=== PATIENT | female | born 1960 | race American Indian/Alaskan Native ===

== ENCOUNTER 2017-02-13 08:47 | Day surgery (SDC) | payer OTHER ==
[2017-02-10 13:16] VITALS: BMI 36.3
[2017-02-13] MEDS ORDERED: Propofol 10 mg/ml Inj (20 ML) ONE (09:39)
[2017-02-13] MEDS ORDERED: Lactated Ringer's 1,000 ML IV SCH (10:45)
[2017-02-13 11:11] VITALS: BP 123/77; RESP 18; TEMP 97.5; O2SAT 100
[2017-02-13 11:29] VITALS: PULSE 67
== END 2017-02-13 11:35 | disposition home or self-care (01) ==
LOC: ENDO 08:47
PROVIDERS: ATTEND Internal Medicine
DX: K21.9 Gastro-esophageal reflux disease without esophagitis (principal); K31.7 Polyp of stomach and duodenum; D12.2 Benign neoplasm of ascending colon; K64.8 Other hemorrhoids; K29.50 Unspecified chronic gastritis without bleeding; R11.0 Nausea; K59.00 Constipation, unspecified; R14.0 Abdominal distension (gaseous); Z12.11 Encounter for screening for malignant neoplasm of colon; Z90.49 Acquired absence of other specified parts of digestive tract
CPT/HCPCS: 43239; 45380; 88305; 88342; J2001; J2704; J3010; J7040; J7120

== ENCOUNTER 2017-12-06 16:40 | Emergency (ER) | payer BC, OTHER ==
[2017-12-06 17:05] VITALS: BMI 30.5
[2017-12-06 17:07] VITALS: BP 142/82; TEMP 98
[2017-12-06 18:24] LABS: BASO # 0.03 K/mm3 (0.0-2.0); BASO % 0.4 % (0.0-3.0); EOS # 0.2 (0.0-0.7); EOS % 2.6 % (1.5-5.0); GRAN # 4.76 (1.4-6.5); GRAN % 58.5 % (50.0-68.0); HEMOGLOBIN 12.7 g/dL (12.0-16.0); LYMPH # 2.6 (1.2-3.4); LYMPH % 32.5 % (22.0-35.0); MEAN CELL VOLUME 85.4 fl (80.0-105.0); MEAN CORPUSCULAR HGB CONC 31.6 g/dl (31.0-37.0); MEAN PLATELET VOLUME 10.3 fl (7.0-11.0); MONO # 0.5 (0.1-0.6); RBC 4.71 10^6/uL (3.5-6.1); WHITE BLOOD COUNT 8.1 10^3/ul (4.5-11.0)
[2017-12-06 18:26] LABS: ALB/GLOB RATIO 1.2 (1.1-1.8); ALBUMIN 4.2 g/dL (3.0-4.8); ALT/SGPT 29 U/L (7-56); AST/SGOT 28 U/L (14-36); BLOOD UREA NITROGEN 17 mg/dL (7-21); CALCIUM 10.6 mg/dL (8.4-10.5); GFR AFRICAN-AMERICAN > 60; GFR NON-AFRICAN AMERICAN 52; MAGNESIUM 2.4 mg/dL (1.7-2.2)
[2017-12-06 18:35] LABS: B-TYPE NATRIURETIC PEPTIDE 41.2 pg/mL (0-450); TROPONIN I < 0.01 ng/mL
[2017-12-06 18:38] LABS: URINE BILIRUBIN NEGATIVE (NEGATIVE); URINE BLOOD NEGATIVE (NEGATIVE); URINE GLUCOSE (UA) NEGATIVE (NEGATIVE); URINE LEUKOCYTE ESTERASE NEGATIVE Leu/uL (NEGATIVE); URINE NITRATE NEGATIVE (NEGATIVE); URINE PROTEIN NEGATIVE mg/dL (<30 mg/dL); URINE UROBILINOGEN 0.2 E.U./dL (<1 E.U./dL)
[2017-12-06 18:40] LABS: URINE APPEARANCE CLEAR (CLEAR); URINE COLOR YELLOW (YELLOW)
[2017-12-06 18:41] LABS: INR 1.03 (0.93-1.08); PARTIAL THROMBOPLASTIN TIME 37.1 Seconds (25.1-36.5); PROTHROMBIN TIME 11.8 SECONDS (9.4-12.5)
[2017-12-06] MEDS ORDERED: Alum-Mag Hydrox-Simethicone Susp (30 mL) PO STA (19:16)
--- NOTE | 2017-12-06 19:37 | ED PDOC ---
Arrival/HPI - General Chief Complaint: Chest Pain Time Seen by Provider: 12/06/17 17:35 Historian: Patient - History of Present Illness Narrative History of Present Illness (Text): 57 y/o woman w/ pmhx of HTN, HLD , past neagtive cardiac stress tests/ echocardiogram reportedly presents sent in from Dr. Parsons's office for evaluaiton of 6 weeks of typically postpradially exacerbated chest paiin , never exertionally exacerbated nor associated with fatigue/malaise/shortness of breath/ decrementation of ET diaphoresis. Denies recent melena/URI like symptoms. Chest pain is nonradiatiing. Chest pain is repdocubible w/ palpation. 12/06/17 19:33 12/06/17 19:38 Symptom Onset: Gradual Symptom Course: Unchanged Quality: Aching Past Medical History - Provider Review Nursing Documentation Reviewed: Yes - Travel History Have you recently traveled outside [place] w/in the past 3 mons?: No - Infectious Disease Hx of Infectious Diseases: None - Tetanus Immunization Tetanus Immunization: Unknown - Cardiac Hx Pacemaker: No - Pulmonary Hx Respiratory Disorders: No - Neurological Hx Paralysis: No - HEENT Hx HEENT Disorder: No - Renal Hx Renal Disorder: No - Endocrine/Metabolic Hx Hypothyroidism: Yes - Hematological/Oncological Hx Blood Transfusions: No Hx Blood Transfusion Reaction: No - Integumentary Hx Dermatological Disorder: No - Musculoskeletal/Rheumatological Hx Musculoskeletal Disorders: No - Gastrointestinal Hx Gastroesophageal Reflux: Yes - Genitourinary/Gynecological Hx Genitourinary Disorders: No - Psychiatric Hx Emotional Abuse: No Hx Physical Abuse: No Hx Substance Use: No - Surgical History Hx Cholecystectomy: Yes (March 2016) Hx Hysterectomy: Yes (Partial hysterectomy) - Anesthesia Hx Anesthesia Reactions: No Hx Malignant Hyperthermia: No - Suicidal Assessment Feels Threatened In Home Enviroment: No Family/Social History - Physician Review Nursing Documentation Reviewed: Yes Family/Social History: No Known Family HX Smoking Status: Never Smoked Hx Alcohol Use: No Hx Substance Use: No Hx Substance Use Treatment: No Allergies/Home Meds Allergies/Adverse Reactions: Allergies No Known Allergies Allergy (Verified 12/06/17 17:05) Home Medications: Home Meds Medication Instructions Recorded Confirmed Simvastatin 20 mg PO DAILY 05/10/15 02/13/17 amLODIPine [Norvasc] 5 mg PO DAILY 05/10/15 02/13/17 Hyoscyamine Sulfate [Levsin] 0.125 mg PO ACTID 02/10/17 02/13/17 Lisinopril [Zestril] 10 mg PO DAILY 02/10/17 02/13/17 Meclizine HCl [Motion Sickness 25 mg PO PRN PRN 02/10/17 02/13/17 Relief] Ondansetron ODT [Zofran ODT] 4 mg PO Q8H PRN 02/10/17 02/10/17 hydroCHLOROthiazide [Hydrodiuril] 25 mg PO DAILY 02/10/17 02/13/17 Esomeprazole Magnesium [Nexium] 20 mg PO DAILY 02/13/17 02/13/17 Review of Systems - Physician Review All systems were reviewed & negative as marked: Yes - Review of Systems Constitutional: Normal Eyes: Normal ENT: Normal Respiratory: Normal Cardiovascular: Chest Pain Gastrointestinal: Normal Genitourinary Female: Normal Musculoskeletal: Normal Skin: Normal Neurological: Normal Endocrine: Normal Hemo/Lymphatic: Normal Psychiatric: Normal Physical Exam Vital Signs Temp Pulse Pulse Resp BP BP Pulse Ox 12/06/17 17:07 98.0 F 65 65 21 142/82 142/82 96 12/06/17 17:05 98.0 F 65 21 142/82 99 Temperature: Afebrile Blood Pressure: Normal Pulse: Regular Respiratory Rate: Normal Appearance: Positive for: Well-Appearing, Non-Toxic, Comfortable Pain Distress: None Mental Status: Positive for: Alert and Oriented X 3 - Systems Exam Head: Present: Atraumatic, Normocephalic Pupils: Present: PERRL Extroacular Muscles: Present: EOMI Conjunctiva: Present: Normal Mouth: Present: Moist Mucous Membranes Neck: Present: Normal Range of Motion Respiratory/Chest: Present: Clear to Auscultation, Good Air Exchange. No: Respiratory Distress, Accessory Muscle Use Cardiovascular: Present: Regular Rate and Rhythm, Normal S1, S2. No: Murmurs Abdomen: Present: Normal Bowel Sounds. No: Tenderness, Distention, Peritoneal Signs Back: Present: Normal Inspection Upper Extremity: Present: Normal Inspection. No: Cyanosis, Edema Lower Extremity: Present: Normal Inspection. No: Edema Neurological: Present: GCS=15, CN II-XII Intact, Speech Normal, Motor Func Grossly Intact, Normal Sensory Function, Normal Cerebellar Funct, Norm Deep Tendon Reflexes Skin: Present: Warm, Dry, Normal Color. No: Rashes Psychiatric: Present: Alert, Oriented x 3, Normal Insight, Normal Concentration Medical Decision Making ED Course and Treatment: 57 y/o female w/ pmhx of htn, hld,GERD p/w postprandially exacerbated CP. ekg : nsr w/ no ischemic [id number] nor arrythmognic intervals 1st set ce's (-) for tropinemia/ cxr (-) for airspace disease. 12/06/17 19:39 12/06/17 19:53 10/26/16 Myocardial Stress Perfusion Test: normal gated wall study/ normal lvef/ normal lv contractility CP currently abated. - Lab Interpretations Lab Results: 12/06/17 17:50 12/06/17 17:50 Lab Results 12/06/17 18:15: Urine Color Yellow, Urine Appearance Clear, Urine pH 7.0, Ur Specific [place] 1.010, Urine Protein Negative, Urine Glucose (UA) Negative, Urine Ketones Negative, Urine Blood Negative, Urine Nitrate Negative, Urine Bilirubin Negative, Urine Urobilinogen 0.2, Ur Leukocyte Esterase Negative 12/06/17 17:50: Sodium 139, Potassium 4.5, Chloride 100, Carbon Dioxide 29, Anion Gap 14, BUN 17, Creatinine 1.1, Est GFR ( Amer) > 60, Est GFR (Non- Af Amer) 52, Random Glucose 99, Calcium 10.6 H, Magnesium 2.4 H, Total Bilirubin 0.3, AST 28, ALT 29, Alkaline Phosphatase 79, Lactate Dehydrogenase 422, Total Creatine Kinase 148, Troponin I < 0.01, NT-Pro-B Natriuret Pep 41.2, Total Protein 7.7, Albumin 4.2, Globulin 3.6, Albumin/Globulin Ratio 1.2 12/06/17 17:50: PT 11.8, INR 1.03, APTT 37.1 H 12/06/17 17:50: WBC 8.1 D, RBC 4.71, Hgb 12.7, Hct 40.2, MCV 85.4, MCH 27.0, MCHC 31.6, RDW 16.0 H, Plt Count 267, MPV 10.3, Gran % 58.5, Lymph % (Auto) 32.5 , [place] % (Auto) 6.0, Eos % (Auto) 2.6, Baso % (Auto) 0.4, Gran # 4.76, Lymph # ( Auto) 2.6, [place] # (Auto) 0.5, Eos # (Auto) 0.2, Baso # (Auto) 0.03 - RAD Interpretation Radiology Orders: 12/06/17 17:36 CHEST PORTABLE [RAD] Stat - Medication Orders Current Medication Orders: Discontinued Medications Al Hydrox/Mg Hydrox/Simethicone (Maalox Plus 30 Ml) 30 ml PO STAT STA Stop: 12/06/17 19:17 Famotidine (Pepcid) 20 mg IVP STAT STA Stop: 12/06/17 19:16 Disposition/Present on Arrival - Present on Arrival Any Indicators Present on Arrival: No History of DVT/PE: No History of Uncontrolled Diabetes: No Urinary Catheter: No History of Decub. Ulcer: No History Surgical Site Infection Following: None - Disposition Have Diagnosis and Disposition been Completed?: Yes Diagnosis: GERD (gastroesophageal reflux disease), Chest pain Disposition: HOME/ ROUTINE Disposition Time: 19:54 Patient Plan: Discharge Condition: FAIR Discharge Instructions (ExitCare): Chest Pain (ED) Print Language: ROMANSH Additional Instructions: Your workup here was negative for any evidence of acute coronary syndromes blood clot in lung/ nor any other chest pain emergencies You must follow up with the die tripper for a comprehensive cardiac evaluation in the next few days. By calling hs office withj report of your ER evaluation. You must also watch your diet carefully avoiding large meals/ greasy meals/meat / coffee/chocalate/all alcoholic beverages , and also all late night eating prior to reclining to bed. Spicy foods can also exacerbate your reflux. Prescriptions: Famotidine [Pepcid] 20 mg PO BID PRN #40 tab PRN Reason: Dyspepsia Referrals: Marietta Parsons MD [Primary Care Provider] - Follow up with primary Gerard Flores MD [Staff Provider] - Follow up with primary Forms: [employer] (Lithuanian)
[2017-12-06 21:23] VITALS: PULSE 69; RESP 19
[2017-12-06 21:24] VITALS: O2SAT 98
--- NOTE | 2017-12-07 08:35 | RAD ---
HISTORY: nathan fenton COMPARISON: 09/21/2016 FINDINGS: LUNGS: No active pulmonary disease. PLEURA: No significant pleural effusion identified, no pneumothorax apparent. CARDIOVASCULAR: Normal. OSSEOUS STRUCTURES: No significant abnormalities. VISUALIZED UPPER ABDOMEN: Normal. OTHER FINDINGS: None. IMPRESSION: No active disease.
--- NOTE | 2017-12-07 16:18 | CARD ---
APPROVED REPORT EKG Measurement Heart [id number] <Conclusion> Normal sinus rhythm Normal ECG
== END 2017-12-06 21:00 | disposition home or self-care (01) ==
LOC: ED 16:40
DX: R07.9 Chest pain, unspecified (principal); K21.9 Gastro-esophageal reflux disease without esophagitis; I10 Essential (primary) hypertension; E78.5 Hyperlipidemia, unspecified

== ENCOUNTER 2018-02-06 06:05 | Day surgery (SDC) | payer OTHER ==
[2018-02-06 07:17] VITALS: BMI 40.1
[2018-02-06] MEDS ORDERED: Propofol 10 mg/ml Inj (20 ML) ONE ×2 (07:52→08:29)
[2018-02-06] MEDS ORDERED: Phenylephrine 10 mg/ml Inj ONE (07:54)
[2018-02-06] MEDS ORDERED: Sodium Chloride 0.9% 1,000 ML IV SCH (08:45)
[2018-02-06 09:23] VITALS: BP 129/85; PULSE 56; RESP 14; TEMP 98.4; O2SAT 100
== END 2018-02-06 09:41 | disposition home or self-care (01) ==
LOC: ENDO 06:05
PROVIDERS: ATTEND Internal Medicine
DX: Z12.11 Encounter for screening for malignant neoplasm of colon (principal); K55.20 Angiodysplasia of colon without hemorrhage; K64.8 Other hemorrhoids; Z86.010 Personal history of colon polyps; I10 Essential (primary) hypertension; E78.5 Hyperlipidemia, unspecified
CPT/HCPCS: 45378; J2370; J2704; J7040 ×2

== ENCOUNTER 2018-02-18 17:11 | Emergency (ER) | payer OTHER ==
[2018-02-18 17:12] VITALS: BMI 40.1
[2018-02-18 17:22] VITALS: RESP 16; TEMP 98.7; O2SAT 98
[2018-02-18] MEDS ORDERED: Lactated Ringer's 1,000 ML IV SCH (17:30)
[2018-02-18 18:08] LABS: PH,URINE 6.5 (4.7-8.0); URINE BILIRUBIN NEGATIVE (NEGATIVE); URINE BLOOD TRACE-INTACT (NEGATIVE); URINE GLUCOSE (UA) NEGATIVE (NEGATIVE); URINE LEUKOCYTE ESTERASE NEGATIVE Leu/uL (NEGATIVE); URINE PROTEIN NEGATIVE mg/dL (<30 mg/dL); URINE UROBILINOGEN 0.2 E.U./dL (<1 E.U./dL)
[2018-02-18 18:11] LABS: URINE APPEARANCE CLEAR (CLEAR); URINE COLOR YELLOW (YELLOW)
[2018-02-18 18:20] LABS: URINE BACTERIA MOD (NEG)
[2018-02-18 18:22] LABS: BASO # 0.04 K/mm3 (0.0-2.0); BASO % 0.5 % (0.0-3.0); EOS # 0.2 (0.0-0.7); GRAN # 4.6 (1.4-6.5); GRAN % 61.9 % (50.0-68.0); HEMOGLOBIN 12.7 g/dL (12.0-16.0); LYMPH % 27.2 % (22.0-35.0); MEAN CELL VOLUME 82.2 fl (80.0-105.0); MEAN CORPUSCULAR HEMOGLOBIN 26.8 pg (25.0-35.0); MEAN CORPUSCULAR HGB CONC 32.6 g/dl (31.0-37.0); MONO # 0.6 (0.1-0.6); MONO % 7.4 % (1.0-6.0); RBC 4.73 10^6/uL (3.5-6.1); RED CELL DISTRIBUTION WIDTH 15.7 % (11.5-14.5); WHITE BLOOD COUNT 7.4 10^3/ul (4.5-11.0)
--- NOTE | 2018-02-18 18:26 | ED PDOC ---
Arrival/HPI - General Chief Complaint: Weakness/Neurological Deficit Time Seen by Provider: 02/18/18 17:21 Historian: Patient - History of Present Illness Narrative History of Present Illness (Text): 02/18/18 18:20 57 year old female, whose past medical history includes iron deficiency anemia ( non-compliant), vertigo, hypertension, and hyperlipidemia, who presents to the emergency department complaining of headache and dizziness for 3 days. Patient notes associated shortness of breath and dyspnea upon exertion. 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 Patient notes she had to sit down and rest. Patient saw Dr. Teixeira on Monday, who discontinued Antihypertensives at that time. Patient had blood test done yesterday, which results showed negative for anemia, negative for renal failure , and negative for electrolyte abnormalities. Recent stress test was received on 01/22/18, with negative results. Patient's recent colonoscopy shows positive for ectatic veins. Patient denies any fever, chills, chest pain, blurry vision, nausea, vomiting, diarrhea, back pain, neck pain, or any other complaints. 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 Past Medical History - Provider Review Nursing Documentation Reviewed: Yes - Infectious Disease Hx of Infectious Diseases: None - Tetanus Immunization Tetanus Immunization: Unknown - Cardiac Hx Cardiac Disorders: Yes Hx Hypertension: Yes - Pulmonary Hx Respiratory Disorders: No - Neurological Hx Neurological Disorder: Yes Hx Vertigo: Yes - HEENT Hx HEENT Disorder: No - Renal Hx Renal Disorder: No - Endocrine/Metabolic Hx Endocrine Disorders: Yes Hx Hypothyroidism: Yes - Hematological/Oncological Hx Blood Disorders: Yes Hx Anemia: Yes - Integumentary Hx Dermatological Disorder: No - Musculoskeletal/Rheumatological Hx Musculoskeletal Disorders: No - Gastrointestinal Hx Gastrointestinal Disorders: Yes Hx Gastroesophageal Reflux: Yes - Genitourinary/Gynecological Hx Genitourinary Disorders: No - Psychiatric Hx Emotional Abuse: No Hx Physical Abuse: No Hx Substance Use: No - Surgical History Hx Cholecystectomy: Yes - Anesthesia Hx Anesthesia Reactions: No Hx Malignant Hyperthermia: No - Suicidal Assessment Feels Threatened In Home Enviroment: No Family/Social History - Physician Review Nursing Documentation Reviewed: Yes Family/Social History: Unknown Family HX Smoking Status: Never Smoked Hx Alcohol Use: No Hx Substance Use: No Hx Substance Use Treatment: No Allergies/Home Meds Allergies/Adverse Reactions: Allergies No Known Allergies Allergy (Verified 02/18/18 17:14) Home Medications: Home Meds Medication Instructions Recorded Confirmed Ondansetron ODT [Zofran ODT] 4 mg PO Q8H PRN 02/10/17 02/18/18 Polyethylene Glycol 3350 1 packet PO DAILY 01/31/18 02/18/18 [Laxaclear] Pantoprazole [Protonix EC Tab] 40 mg PO DAILY 02/18/18 02/18/18 Review of Systems - Physician Review All systems were reviewed & negative as marked: Yes - Review of Systems Constitutional: Normal Eyes: Normal ENT: Tinnitus (Left tinnitus, prescribed ear drops) Respiratory: absent: SOB Cardiovascular: Normal. absent: Chest Pain Gastrointestinal: Normal. absent: Abdominal Pain Genitourinary Female: Normal. absent: Dysuria, Frequency, Hematuria, Urine Output Changes Musculoskeletal: Normal. absent: Back Pain, Neck Pain Skin: Normal. absent: Rash Neurological: Headache, Dizziness Endocrine: Normal Hemo/Lymphatic: Normal Psychiatric: Normal Physical Exam Vital Signs Reviewed: Yes Vital Signs Temp Pulse Resp BP Pulse Ox 02/18/18 17:16 98.7 F 71 16 156/97 H 98 Temperature: Afebrile Blood Pressure: Hypertensive Pulse: Regular Respiratory Rate: Normal Appearance: Positive for: Well-Appearing, Non-Toxic, Comfortable Pain Distress: None Mental Status: Positive for: Alert and Oriented X 3 - Systems Exam Head: Present: Atraumatic, Normocephalic Pupils: Present: PERRL Extroacular Muscles: Present: EOMI Conjunctiva: Present: Normal Mouth: Present: Moist Mucous Membranes Neck: Present: Normal Range of Motion. No: MIDLINE TENDERNESS Respiratory/Chest: Present: Clear to Auscultation, Good Air Exchange. No: Respiratory Distress, Accessory Muscle Use, Decreased Breath Sounds Cardiovascular: Present: Regular Rate and Rhythm, Normal S1, S2. No: Murmurs Abdomen: No: Tenderness, Distention, Peritoneal Signs Back: Present: Normal Inspection. No: CVA Tenderness, Midline Tenderness, Paraspinal Tenderness Upper Extremity: Present: Normal Inspection. No: Cyanosis, Edema Lower Extremity: Present: Normal Inspection. No: Edema, CALF TENDERNESS Neurological: Present: GCS=15, CN II-XII Intact, Speech Normal, Other (Knvg- Hallpike positive for fatigueness and nystagmus to the left) Skin: Present: Warm, Dry, Normal Color. No: Rashes Psychiatric: Present: Alert, Oriented x 3, Normal Insight, Normal Concentration Medical Decision Making ED Course and Treatment: 02/18/18 18:30 Impression: 57 year old female presents to the emergency department complaining of headache and dizziness for 3 days. Plan: -- VBG -- CT head -- EKG: SB @ 54 bpm no arrythmogenic intervals / ischemic st-t intervals -- Labs -- Cardiac Enzymes -- Chest X-ray -- Acetaminophen -- Lactate Ringer's -- Antivert -- Reassess and disposition Progress Notes: Pt. signed out to my replacement Dr. Lebron to reassess patient s/p ivf/ meclizine/antivert/ head ct non contrast. 02/18/18 18:47 - Lab Interpretations Lab Results: 02/18/18 18:10 02/18/18 18:10 Lab Results 02/18/18 18:10: Sodium 141, Chloride 105, Potassium 4.0, Carbon Dioxide 26, Anion Gap 14, BUN 14, Creatinine 1.1, Est GFR ( Amer) > 60, Est GFR (Non- Af Amer) 52, Random Glucose 94, Calcium 9.9, Total Bilirubin 0.1 L, AST 25, ALT 29, Alkaline Phosphatase 83, Lactate Dehydrogenase 376, Total Creatine Kinase 92 , Troponin I < 0.01, Total Protein 7.5, Albumin 4.0, Globulin 3.5, Albumin/ Globulin Ratio 1.2 02/18/18 18:10: pO2 93 H, VBG pH 7.43, VBG pCO2 44.0, VBG HCO3 29.2 H, VBG Total CO2 30.6 H, VBG O2 Sat (Calc) 99.1 H, VBG Base Excess 4.2 H, VBG Potassium 4.0, Sodium 141.0, Chloride 107.0, Glucose 93, Lactate 1.1, FiO2 21.0 , Venous Blood Potassium 4.0 02/18/18 18:10: PT 12.4, INR 1.09 H, APTT 38.4 H 02/18/18 18:10: WBC 7.4 D, RBC 4.73, Hgb 12.7, Hct 38.9, MCV 82.2, MCH 26.8, MCHC 32.6, RDW 15.7 H, Plt Count 244, MPV 10.0, Gran % 61.9, Lymph % (Auto) 27.2 , [place] % (Auto) 7.4 H, Eos % (Auto) 3.0, Baso % (Auto) 0.5, Gran # 4.60, Lymph # (Auto) 2.0, [place] # (Auto) 0.6, Eos # (Auto) 0.2, Baso # (Auto) 0.04 02/18/18 17:30: Urine Color Yellow, Urine Appearance Clear, Urine pH 6.5, Ur Specific [place] <= 1.005, Urine Protein Negative, Urine Glucose (UA) Negative, Urine Ketones Negative, Urine Blood Trace-intact H, Urine Nitrate Negative, Urine Bilirubin Negative, Urine Urobilinogen 0.2, Ur Leukocyte Esterase Negative , Urine RBC 1 - 3, Urine WBC 2 - 5, Ur Epithelial Cells 3 - 4, Urine Bacteria Mod - RAD Interpretation Radiology Orders: 02/18/18 17:26 CHEST TWO VIEWS (PA/LAT) [RAD] Stat 02/18/18 18:15 HEAD W/O CONTRAST [CT] Stat - Medication Orders Current Medication Orders: Lactated Ringer's (Lactated Ringer's) 1,000 mls @ 1,000 mls/hr IV .Q1H SOFÍA Last Admin: 02/18/18 17:45 Dose: 1,000 mls/hr eMAR Start Stop Document 02/18/18 17:45 NANETTE (Rec: 02/18/18 17:45 NANETTE [id number]) Intravenous Solution Start Date 02/18/18 Start Time 17:45 End Date 02/18/18 End time 18:45 Total Infusion Time 60 Discontinued Medications Acetaminophen (Tylenol 325mg Tab) 650 mg PO STAT STA Stop: 02/18/18 18:16 Last Admin: 02/18/18 18:38 Dose: Not Given Non-Admin Reason: Patient Refused Meclizine HCl (Antivert) 25 mg PO STAT STA Stop: 02/18/18 18:01 Last Admin: 02/18/18 18:38 Dose: 25 mg - Scribe Statement The provider has reviewed the documentation as recorded by the Scribvaishali Elena All medical record entries made by the Curtisibvaishali were at my direction and personally dictated by me. I have reviewed the chart and agree that the record accurately reflects my personal performance of the history, physical exam, medical decision making, and the department course for this patient. I have also personally directed, reviewed, and agree with the discharge instructions and disposition. Disposition/Present on Arrival - Present on Arrival Any Indicators Present on Arrival: No History of DVT/PE: No History of Uncontrolled Diabetes: No Urinary Catheter: No History of Decub. Ulcer: No History Surgical Site Infection Following: None - Disposition Have Diagnosis and Disposition been Completed?: Yes Diagnosis: Vertigo Disposition Time: 18:50 Patient Plan: Observation Condition: STABLE Referrals: Marietta Parsons MD [Primary Care Provider] - Follow up with primary Forms: [employer] (Uzbek)
[2018-02-18 18:30] LABS: VENOUS BLOOD GAS BASE EXCESS 4.2 mmol/L (0.0-2.0); VENOUS BLOOD GAS PO2 93 mm/Hg (30-55); VENOUS BLOOD PH 7.43 (7.32-7.43)
[2018-02-18 18:31] LABS: INR 1.09 (0.93-1.08); PROTHROMBIN TIME 12.4 SECONDS (9.4-12.5)
[2018-02-18 18:32] LABS: PARTIAL THROMBOPLASTIN TIME 38.4 Seconds (25.1-36.5)
[2018-02-18 18:33] LABS: ALB/GLOB RATIO 1.2 (1.1-1.8); ALT/SGPT 29 U/L (7-56); AST/SGOT 25 U/L (14-36); BLOOD UREA NITROGEN 14 mg/dL (7-21); CALCIUM 9.9 mg/dL (8.4-10.5); GFR AFRICAN-AMERICAN > 60; GFR NON-AFRICAN AMERICAN 52
[2018-02-18 18:44] LABS: TROPONIN I < 0.01 ng/mL
--- NOTE | 2018-02-18 19:10 | ED PDOC ---
Physical Exam Vital Signs Reviewed: Yes Vital Signs Temp Pulse Resp BP Pulse Ox 02/18/18 20:08 70 16 118/70 02/18/18 17:16 98.7 F 71 16 156/97 H 98 Temperature: Afebrile Blood Pressure: Hypertensive Pulse: Regular Respiratory Rate: Normal Appearance: Positive for: Well-Appearing, Non-Toxic, Comfortable Pain Distress: None Mental Status: Positive for: Alert and Oriented X 3 - Systems Exam Head: Present: Atraumatic, Normocephalic Pupils: Present: PERRL Extroacular Muscles: Present: EOMI Conjunctiva: Present: Normal Ears: Present: Normal Mouth: Present: Moist Mucous Membranes Pharnyx: Present: Normal Nose (External): Present: Atraumatic Nose (Internal): Present: Normal Inspection Neck: Present: Normal Range of Motion Respiratory/Chest: Present: Clear to Auscultation, Good Air Exchange Cardiovascular: Present: Regular Rate and Rhythm Abdomen: No: Tenderness, Distention, Normal Bowel Sounds, Peritoneal Signs, Rebound, Guarding, McBurney's Point Tender, Rovsing's Sign Present, Hernias, Feeding Tubes, Ostomy Tubes, Mass/Organomegaly, Scars, Other Back: Present: Normal Inspection Upper Extremity: Present: Normal Inspection Lower Extremity: Present: Normal Inspection Neurological: Present: GCS=15, CN II-XII Intact, Speech Normal, Motor Func Grossly Intact Skin: Present: Warm, Normal Color Psychiatric: Present: Alert, Oriented x 3, Normal Insight, Normal Concentration Medical Decision Making ED Course and Treatment: you, whose past medical history includes iron deficiency anemia (non-compliant) , vertigo, hypertension, and hyperlipidemia, who presents to the emergency department complaining of headache and dizziness for 3 days. Notes associated shortness of breath and dyspnea upon exertion and mild cough with clear sputum. 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 Notes she had to sit down and rest. Saw Dr. Teixeira on Monday, who discontinued Antihypertensives at that time. Patient had blood test done yesterday, which results showed negative for anemia, negative for renal failure, and negative for electrolyte abnormalities. Recent stress test was received on 01/22/18, with negative results. Patient's recent colonoscopy shows positive for ectatic veins. Patient denies any fever, chills, chest pain, blurry vision, nausea, vomiting, diarrhea, back pain, neck pain, travel/prior blood clots/prior cancer/ hormonal treatment, or any other complaints. no fever temp 98.7, stable heart rate 71, stable breathing rate 16, excellent oxygen level 98% room air, elevated blood pressure 156/97 which we recommend repeat 1-2 days primary care to determine further treatment. stable white blood cell count 12, hemaglobin 12/ platelets 244, stable chemistry, normal troponin heart blood test, no acute sign of urine infection, lactic acid 1.1 normal. ECG sinus bradycardia. CT head no definate intracranial abnormality, chest xray mild markings. meclizine, observation done in the Emergency department with improvement. had a long discussion about staying in the hospital further overnight for observation/care but you refused and cautioned for complications/ but you stated you have a history of vertigo and feel improved with meclizine treatment and will followup with Dr. Parsons tomorrow to review your symptoms. 1. recommend meclizine as directed for dizziness as directed and don't work/drive/drink alcohol when using. recommend if persistent cough and or sputum change in 24-48hrs then start azithromycin for bronchitis/early pneumonia treatment. 2. recommend followup primary care 1 days to review symptoms, get final xray report, referral to neurology and cardiology clinic to review your symptoms. 3. if any worsening pain, fever, chills, nausea, vomiting, dizziness or any medical condition then return to the Emergency department. CT head FINDINGS: Brain: Mild atrophy. No intracranial hemorrhage. No mass. No definite edema. Ventricles: No hydrocephalus. Bones/joints: No acute fracture. Soft tissues: Unremarkable. Vasculature: Minimal atherosclerotic disease of intracranial arteries. Sinuses: No acute sinusitis. Mastoid air cells: No mastoid effusion. Orbits: Unremarkable as visualized. IMPRESSION: 1. No definite acute intracranial abnormality. 2. Incidental/non-acute findings are described above. 02/18/18 20:17 02/18/18 20:24 Reassessment Condition: Re-examined - Lab Interpretations Lab Results: 02/18/18 18:10 02/18/18 18:10 Lab Results 02/18/18 18:10: Sodium 141, Chloride 105, Potassium 4.0, Carbon Dioxide 26, Anion Gap 14, BUN 14, Creatinine 1.1, Est GFR ( Amer) > 60, Est GFR (Non- Af Amer) 52, Random Glucose 94, Calcium 9.9, Total Bilirubin 0.1 L, AST 25, ALT 29, Alkaline Phosphatase 83, Lactate Dehydrogenase 376, Total Creatine Kinase 92 , Troponin I < 0.01, Total Protein 7.5, Albumin 4.0, Globulin 3.5, Albumin/ Globulin Ratio 1.2 02/18/18 18:10: pO2 93 H, VBG pH 7.43, VBG pCO2 44.0, VBG HCO3 29.2 H, VBG Total CO2 30.6 H, VBG O2 Sat (Calc) 99.1 H, VBG Base Excess 4.2 H, VBG Potassium 4.0, Sodium 141.0, Chloride 107.0, Glucose 93, Lactate 1.1, FiO2 21.0 , Venous Blood Potassium 4.0 02/18/18 18:10: PT 12.4, INR 1.09 H, APTT 38.4 H 02/18/18 18:10: WBC 7.4 D, RBC 4.73, Hgb 12.7, Hct 38.9, MCV 82.2, MCH 26.8, MCHC 32.6, RDW 15.7 H, Plt Count 244, MPV 10.0, Gran % 61.9, Lymph % (Auto) 27.2 , [place] % (Auto) 7.4 H, Eos % (Auto) 3.0, Baso % (Auto) 0.5, Gran # 4.60, Lymph # (Auto) 2.0, [place] # (Auto) 0.6, Eos # (Auto) 0.2, Baso # (Auto) 0.04 02/18/18 17:30: Urine Color Yellow, Urine Appearance Clear, Urine pH 6.5, Ur Specific Kent <= 1.005, Urine Protein Negative, Urine Glucose (UA) Negative, Urine Ketones Negative, Urine Blood Trace-intact H, Urine Nitrate Negative, Urine Bilirubin Negative, Urine Urobilinogen 0.2, Ur Leukocyte Esterase Negative , Urine RBC 1 - 3, Urine WBC 2 - 5, Ur Epithelial Cells 3 - 4, Urine Bacteria Mod I have reviewed the lab results: Yes - RAD Interpretation Radiology Orders: 02/18/18 17:26 CHEST TWO VIEWS (PA/LAT) [RAD] Stat 04/15/18 18:15 HEAD W/O CONTRAST [CT] Stat - EKG Interpretation Interpreted by ED Physician: Yes (sinus bradycardia) Type: 12 lead EKG - Medication Orders Current Medication Orders: Lactated Ringer's (Lactated Ringer's) 1,000 mls @ 1,000 mls/hr IV .Q1H SOFÍA Last Admin: 02/18/18 17:45 Dose: 1,000 mls/hr eMAR Start Stop Document 02/18/18 17:45 NANETTE (Rec: 02/18/18 17:45 NANETTE [id number]) Intravenous Solution Start Date 02/18/18 Start Time 17:45 End Date 02/18/18 End time 18:45 Total Infusion Time 60 Discontinued Medications Acetaminophen (Tylenol 325mg Tab) 650 mg PO STAT STA Stop: 02/18/18 18:16 Last Admin: 02/18/18 18:38 Dose: Not Given Non-Admin Reason: Patient Refused Meclizine HCl (Antivert) 25 mg PO STAT STA Stop: 02/18/18 18:01 Last Admin: 02/18/18 18:38 Dose: 25 mg Disposition/Present on Arrival - Present on Arrival Any Indicators Present on Arrival: No History of DVT/PE: No History of Uncontrolled Diabetes: No Urinary Catheter: No History of Decub. Ulcer: No History Surgical Site Infection Following: None - Disposition Have Diagnosis and Disposition been Completed?: Yes Diagnosis: Vertigo Disposition: HOME/ ROUTINE Disposition Time: 20:28 Patient Plan: Discharge Patient Problems: Current Active Problems Problem Status Onset Vertigo Acute Condition: IMPROVED Discharge Instructions (ExitCare): Vertigo (a Type of Dizziness) (DC) Additional Instructions: you, whose past medical history includes iron deficiency anemia (non-compliant) , vertigo, hypertension, and hyperlipidemia, who presents to the emergency department complaining of headache and dizziness for 3 days. Notes associated shortness of breath and dyspnea upon exertion and mild cough with clear sputum. 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 Notes she had to sit down and rest. Saw Dr. Teixeira on Monday, who discontinued Antihypertensives at that time. Patient had blood test done yesterday, which results showed negative for anemia, negative for renal failure, and negative for electrolyte abnormalities. Recent stress test was received on 01/22/18, with negative results. Patient's recent colonoscopy shows positive for ectatic veins. Patient denies any fever, chills, chest pain, blurry vision, nausea, vomiting, diarrhea, back pain, neck pain, travel/prior blood clots/prior cancer/ hormonal treatment, or any other complaints. no fever temp 98.7, stable heart rate 71, stable breathing rate 16, excellent oxygen level 98% room air, elevated blood pressure 156/97 which we recommend repeat 1-2 days primary care to determine further treatment. stable white blood cell count 12, hemaglobin 12/ platelets 244, stable chemistry, normal troponin heart blood test, no acute sign of urine infection, lactic acid 1.1 normal. ECG sinus bradycardia. CT head no definate intracranial abnormality, chest xray mild markings. meclizine, observation done in the Emergency department with improvement. had a long discussion about staying in the hospital further overnight for observation/care but you refused and cautioned for complications/ but you stated you have a history of vertigo and feel improved with meclizine treatment and will followup with Dr. Parsons tomorrow to review your symptoms. 1. recommend meclizine as directed for dizziness as directed and don't work/drive/drink alcohol when using. recommend if persistent cough and or sputum change in 24-48hrs then start azithromycin for bronchitis/early pneumonia treatment. 2. recommend followup primary care 1 days to review symptoms, get final xray report, referral to neurology and cardiology clinic to review your symptoms. 3. if any worsening pain, fever, chills, nausea, vomiting, dizziness or any medical condition then return to the Emergency department. Prescriptions: Azithromycin [Z-Dez] 250 mg PO DAILY 5 Days #6 tab Meclizine [Antivert] 12.5 mg PO DAILY PRN 12 Days #12 tab PRN Reason: dizziness/vertigo Referrals: Marietta Parsons MD [Primary Care Provider] - Follow up with primary Forms: [employer] (Bengali)
--- NOTE | 2018-02-18 20:05 | CT ---
EXAM: CT Head Without Intravenous Contrast CLINICAL HISTORY: 57 years old, female; Signs and symptoms; Dizziness and other: Headache; Additional info: Dizziness and headache TECHNIQUE: Axial computed tomography images of the head/brain without intravenous contrast. All CT scans at this facility use one or more dose reduction techniques, viz.: automated exposure control; ma/kV adjustment per patient size (including targeted exams where dose is matched to indication; i.e. head); or iterative reconstruction technique. Coronal and sagittal reformatted images were created and reviewed. COMPARISON: No relevant prior studies available. FINDINGS: Brain: Mild atrophy. No intracranial hemorrhage. No mass. No definite edema. Ventricles: No hydrocephalus. Bones/joints: No acute fracture. Soft tissues: Unremarkable. Vasculature: Minimal atherosclerotic disease of intracranial arteries. Sinuses: No acute sinusitis. Mastoid air cells: No mastoid effusion. Orbits: Unremarkable as visualized. IMPRESSION: 1. No definite acute intracranial abnormality. 2. Incidental/non-acute findings are described above.
[2018-02-18 20:09] VITALS: BP 118/70; PULSE 70
--- NOTE | 2018-02-19 08:20 | RAD ---
HISTORY: COMPARISON: 12/06/2017. TECHNIQUE: Chest PA and lateral FINDINGS: LINES AND TUBES: None. LUNG AND PLEURA: The lungs are well inflated and clear. HEART AND MEDIASTINUM: The heart is not enlarged. The hilar and mediastinal contours are within normal limits. SKELETAL STRUCTURES: The bony structures are within normal limits for the patient's age. VISUALIZED UPPER ABDOMEN: Normal. OTHER FINDINGS: None. IMPRESSION: No active pulmonary disease.
--- NOTE | 2018-02-19 09:08 | CARD ---
APPROVED REPORT EKG Measurement Heart [id number] <Conclusion> Sinus bradycardia LVH by voltage NSSTW changes
== END 2018-02-18 20:55 | disposition home or self-care (01) ==
LOC: ED 17:11
DX: R42 Dizziness and giddiness (principal); E78.5 Hyperlipidemia, unspecified; E03.9 Hypothyroidism, unspecified; I10 Essential (primary) hypertension
CPT/HCPCS: 70450; 71046; 80053; 81001; 82550; 82803; 83615; 83880; 84484; 85025; 85610; 85730; 93005; 96360; 99282; J7120

== ENCOUNTER 2018-06-25 18:29 | Emergency (ER) | payer OTHER ==
[2018-06-25 18:31] VITALS: BMI 40.1
[2018-06-25 19:33] VITALS: TEMP 98.6
[2018-06-25] MEDS ORDERED: Sodium Chloride 0.9% 1,000 ML IV STA (20:27)
--- NOTE | 2018-06-25 20:27 | ED PDOC ---
Arrival/HPI - General Chief Complaint: High Blood Pressure Time Seen by Provider: 06/25/18 20:26 - History of Present Illness Narrative History of Present Illness (Text): 06/25/18 20:27 A 57 year old female, whose past medical history includes migraines, hypertension and hyperlipidemia, presents to the emergency department complaining of high blood pressure and abdominal pain since earlier this afternoon. Patient reports experiencing pressure on her abdomen and associated headache and nausea. Patient reports she came back from a road trip to [place] yesterday and started feeling symptoms exacerbating in the drive back home. Patient denies any fever, chills, shortness of breath, vomiting, diarrhea, urinary symptoms, back pain, neck pain, dizziness, or any other complaints. Patient reports secondary complaint of anterior chest wall pain, ongoing since trip to [place] ([address]), constant for about 2 days. PMD: Dr. Parsons 06/25/18 22:20 Time/Duration: Other (earlier this afternoon ) Symptom Onset: Gradual Symptom Course: Unchanged Context: Home Past Medical History - Provider Review Nursing Documentation Reviewed: Yes - Infectious Disease Hx of Infectious Diseases: None - Tetanus Immunization Tetanus Immunization: Unknown - Cardiac Hx Cardiac Disorders: Yes Hx Hypertension: Yes - Pulmonary Hx Respiratory Disorders: No - Neurological Hx Neurological Disorder: Yes Hx Migraine: Yes Hx Vertigo: Yes - HEENT Hx HEENT Disorder: No - Renal Hx Renal Disorder: No - Endocrine/Metabolic Hx Endocrine Disorders: Yes Hx Hypothyroidism: Yes - Hematological/Oncological Hx Blood Disorders: Yes Hx Anemia: Yes - Integumentary Hx Dermatological Disorder: No - Musculoskeletal/Rheumatological Hx Musculoskeletal Disorders: No - Gastrointestinal Hx Gastrointestinal Disorders: Yes Hx Gastroesophageal Reflux: Yes - Genitourinary/Gynecological Hx Genitourinary Disorders: No - Psychiatric Hx Emotional Abuse: No Hx Physical Abuse: No Hx Substance Use: No - Surgical History Hx Cholecystectomy: Yes - Anesthesia Hx Anesthesia Reactions: No Hx Malignant Hyperthermia: No - Suicidal Assessment Feels Threatened In Home Enviroment: No Family/Social History - Physician Review Nursing Documentation Reviewed: Yes Family/Social History: Unknown Family HX Smoking Status: Never Smoked Hx Alcohol Use: No Hx Substance Use: No Hx Substance Use Treatment: No Allergies/Home Meds Allergies/Adverse Reactions: Allergies No Known Allergies Allergy (Verified 06/25/18 19:25) Home Medications: Home Meds Medication Instructions Recorded Confirmed Butalb/Acetaminophen/Caffeine 1 cap PO Q8 PRN 06/25/18 06/25/18 [Zebutal 325 mg-50 mg-40 mg] Omeprazole [Omeprazole] 40 mg PO DAILY 06/25/18 06/25/18 Simvastatin [Zocor] 20 mg PO DAILY 06/25/18 06/25/18 amLODIPine [Norvasc] 5 mg PO DAILY 06/25/18 06/25/18 Review of Systems - Physician Review All systems were reviewed & negative as marked: Yes - Review of Systems Constitutional: absent: Fevers, Night Sweats Respiratory: absent: SOB Cardiovascular: absent: Chest Pain Gastrointestinal: Abdominal Pain, Nausea. absent: Diarrhea, Vomiting Genitourinary Female: absent: Urine Output Changes Musculoskeletal: absent: Back Pain, Neck Pain Neurological: Headache. absent: Dizziness Physical Exam Vital Signs Reviewed: Yes Vital Signs Temp Pulse Resp BP Pulse Ox 06/25/18 21:26 58 L 16 153/93 H 100 06/25/18 19:28 98.6 F 75 17 162/98 H 99 Temperature: Afebrile Blood Pressure: Hypertensive Pulse: Regular Respiratory Rate: Normal Appearance: Positive for: Well-Appearing, Non-Toxic, Comfortable Pain Distress: None Mental Status: Positive for: Alert and Oriented X 3 - Systems Exam Head: Present: Atraumatic, Normocephalic Pupils: Present: PERRL Extroacular Muscles: Present: EOMI Conjunctiva: Present: Normal Mouth: Present: Moist Mucous Membranes Neck: Present: Normal Range of Motion Respiratory/Chest: Present: Clear to Auscultation, Good Air Exchange, Tender to Palpation ( +moderate tenderness to entire sternum). No: Respiratory Distress, Accessory Muscle Use, Wheezes, Decreased Breath Sounds, Rales, Retracting, Rhonchi, Tachypneic Cardiovascular: Present: Regular Rate and Rhythm, Normal S1, S2. No: Murmurs Abdomen: Present: Tenderness (+mild epigastric tendernes). No: Distention, Normal Bowel Sounds, Peritoneal Signs, Rebound, Guarding, McBurney's Point Tender, Rovsing's Sign Present, Hernias, Feeding Tubes, Ostomy Tubes, Mass/ Organomegaly, Scars Back: Present: Normal Inspection Upper Extremity: Present: Normal Inspection. No: Cyanosis, Edema Lower Extremity: Present: Normal Inspection. No: Edema Neurological: Present: GCS=15, CN II-XII Intact, Speech Normal Skin: Present: Warm, Dry, Normal Color. No: Rashes Psychiatric: Present: Alert, Oriented x 3, Normal Insight, Normal Concentration Medical Decision Making ED Course and Treatment: 06/25/18 20:35 Impression: 57 year old female presenting to the emergency department complaining of high blood pressure and abdominal pain. Plan: -- Comp metabolic panel -- Lipase -- troponin -- CBC -- D dimer -- COAG -- Tylenol -- Toradol -- IV Fluids -- Reassess and disposition Prior Visits: Notes and results from previous visits were reviewed. Progress Notes: 06/25/18 20:56 patient seen for multiple complaints however chief complaint is epigastric and chest pain with secondary frontal headache typical for patient's usual migraine headache. will workup for low clinical suspicion for acs, will get labs to eval for possible pancreatitis and if lfts are abnormal will follow up with US. 06/25/18 22:21 patient feels much better and ready to go home. patient has an appointment with cardiology this monday. with negative trop and unremarkable ekg an acute event such as acs is very unlikely. there is no sig clinical suspicion for an acute event such as pe or aortic dissection. patient remained stable thoughtout ED course and stable for dc. - Lab Interpretations Lab Results: 06/25/18 19:50 06/25/18 19:50 Lab Results 06/25/18 19:50: Sodium 145, Potassium 4.0, Chloride 107, Carbon Dioxide 26, Anion Gap 16, BUN 13, Creatinine 0.9, Est GFR ( Amer) > 60, Est GFR (Non- Af Amer) > 60, Random Glucose 109, Calcium 10.0, Total Bilirubin 0.3, AST 27, ALT 18, Alkaline Phosphatase 106, Troponin I < 0.01, Total Protein 8.5 H, Albumin 4.5, Globulin 4.0, Albumin/Globulin Ratio 1.1, Lipase 48 06/25/18 19:50: PT 11.7, INR 1.03, APTT 37.1 H, D-Dimer, Quantitative < 200 06/25/18 19:50: WBC 8.5, RBC 5.13, Hgb 14.0, Hct 42.2, MCV 82.3, MCH 27.3, MCHC 33.2, RDW 15.9 H, Plt Count 286, MPV 10.5, Gran % 65.2, Lymph % (Auto) 26.2, Arthur % (Auto) 5.9, Eos % (Auto) 2.3, Baso % (Auto) 0.4, Gran # 5.57, Lymph # ( Auto) 2.2, Arthur # (Auto) 0.5, Eos # (Auto) 0.2, Baso # (Auto) 0.03 - RAD Interpretation Narrative RAD Interpretations (Text): 06/25/18 22:08 cxr my read: no focal infiltrate, no ptx, no cardiomegaly Radiology Orders: 06/25/18 20:27 CHEST PORTABLE [RAD] Stat Induction Heat Treater: ED Physician - EKG Interpretation EKG Interpretation (Text): 06/25/18 20:43 1940: nsr at 72 bpm, nml qrs, nml axis, nonspecific t wave abn Interpreted by ED Physician: Yes - Medication Orders Current Medication Orders: Discontinued Medications Acetaminophen (Tylenol 325mg Tab) 975 mg PO STAT STA Stop: 06/25/18 20:29 Last Admin: 06/25/18 20:37 Dose: 975 mg Sodium Chloride (Sodium Chloride 0.9%) 1,000 mls @ 999 mls/hr IV .Q1H1M STA Stop: 06/25/18 21:27 Last Admin: 06/25/18 20:36 Dose: 999 mls/hr eMAR Start Stop Document 06/25/18 20:36 CNR (Rec: 06/25/18 20:37 CNR [id number]) Intravenous Solution Start Date 06/25/18 Start Time 20:37 End Date 06/25/18 End time 21:37 Total Infusion Time 60 Ketorolac Tromethamine (Toradol) 30 mg IVP STAT STA Stop: 06/25/18 20:28 Last Admin: 06/25/18 20:37 Dose: 30 mg MAR Pain Assessment Document 06/25/18 20:37 CNR (Rec: 06/25/18 20:37 CNR [id number]) Pain Reassessment Is this a pain reassessment? No IVP Administration Document 06/25/18 20:37 CNR (Rec: 06/25/18 20:37 CNR [id number]) Charges for Administration # of IVP Administrations 1 - Scribe Statement The provider has reviewed the documentation as recorded by the Alva Martinez All medical record entries made by the Curtisibvaishali were at my direction and personally dictated by me. I have reviewed the chart and agree that the record accurately reflects my personal performance of the history, physical exam, medical decision making, and the department course for this patient. I have also personally directed, reviewed, and agree with the discharge instructions and disposition. Disposition/Present on Arrival - Present on Arrival Any Indicators Present on Arrival: No History of DVT/PE: No History of Uncontrolled Diabetes: No Urinary Catheter: No History of Decub. Ulcer: No History Surgical Site Infection Following: None - Disposition Have Diagnosis and Disposition been Completed?: Yes Diagnosis: Anterior chest wall pain, Epigastric abdominal pain Disposition: HOME/ ROUTINE Disposition Time: 22:23 Patient Plan: Discharge Condition: STABLE Discharge Instructions (ExitCare): Costochondritis (DC) Print Language: YORUBA Additional Instructions: Return for any new or worsening symptoms. 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 ELVIS EDGAR, thank you for letting us take care of you today. Your provider was Dr. Wilner Santana and you were treated for chest wall pain and epigastric pain. The emergency medical care you received today was directed at your acute symptoms. If you were prescribed any medication, please fill it and take as directed. It may take several days for your symptoms to resolve. Return to the Emergency Department if your symptoms worsen, do not improve, or if you have any other problems. Please contact your doctor or call one of the physicians/clinics you have been referred to that are listed on the Patient Visit Information form that is included in your discharge packet. Bring any paperwork you were given at discharge with you along with any medications you are taking to your follow up visit. Our treatment cannot replace ongoing medical care by a primary care provider outside of the emergency department. [facility]. If you had an X-Ray or CT scan: A Radiologist will review the ED reading if any change in treatment is needed we will contact you. If you had a blood, urine, or wound culture: It will take several days for the results, if any change in treatment is needed we will contact you. If you had an STI test: It will take 48 hours for the results. Please call after 1 week if you have not heard back. Referrals: Marietta Parsons MD [Primary Care Provider] - Follow up with primary Forms: [employer] (Slovak), WORK NOTE
[2018-06-25 21:15] LABS: BASO # 0.03 K/mm3 (0.0-2.0); BASO % 0.4 % (0.0-3.0); EOS # 0.2 (0.0-0.7); EOS % 2.3 % (1.5-5.0); GRAN # 5.57 (1.4-6.5); GRAN % 65.2 % (50.0-68.0); LYMPH # 2.2 (1.2-3.4); LYMPH % 26.2 % (22.0-35.0); MEAN CELL VOLUME 82.3 fl (80.0-105.0); MEAN CORPUSCULAR HEMOGLOBIN 27.3 pg (25.0-35.0); MEAN CORPUSCULAR HGB CONC 33.2 g/dl (31.0-37.0); MEAN PLATELET VOLUME 10.5 fl (7.0-11.0); MONO # 0.5 (0.1-0.6); MONO % 5.9 % (1.0-6.0); RBC 5.13 10^6/uL (3.5-6.1); RED CELL DISTRIBUTION WIDTH 15.9 % (11.5-14.5); WHITE BLOOD COUNT 8.5 10^3/ul (4.5-11.0)
[2018-06-25 21:27] VITALS: RESP 16
[2018-06-25 21:31] LABS: ALB/GLOB RATIO 1.1 (1.1-1.8); ALBUMIN 4.5 g/dL (3.0-4.8); ALT/SGPT 18 U/L (7-56); AST/SGOT 27 U/L (14-36); BLOOD UREA NITROGEN 13 mg/dL (7-21); GFR AFRICAN-AMERICAN > 60; GFR NON-AFRICAN AMERICAN > 60; LIPASE 48 U/L (23-300)
[2018-06-25 21:34] LABS: INR 1.03; PARTIAL THROMBOPLASTIN TIME 37.1 Seconds (25.1-36.5); PROTHROMBIN TIME 11.7 SECONDS (9.4-12.5)
[2018-06-25 21:43] LABS: TROPONIN I < 0.01 ng/mL
[2018-06-25 21:51] LABS: D DIMER < 200 ng/mlDDU (0-243)
[2018-06-25 22:55] VITALS: BP 128/89; PULSE 68; O2SAT 98
--- NOTE | 2018-06-26 08:44 | RAD ---
Date of service: 06/25/2018 HISTORY: chest pain COMPARISON: 02/18/2018. FINDINGS: LUNGS: The lungs are well inflated and clear. PLEURA: No significant pleural effusion identified, no pneumothorax apparent. CARDIOVASCULAR: Normal. OSSEOUS STRUCTURES: No significant abnormalities. VISUALIZED UPPER ABDOMEN: Normal. OTHER FINDINGS: None. IMPRESSION: No active pulmonary disease.
--- NOTE | 2018-06-26 21:03 | CARD ---
APPROVED REPORT Date of service: 06/25/2018 EKG Measurement Heart [id number] <Conclusion> Normal sinus rhythm Nonspecific T wave abnormality Abnormal ECG
== END 2018-06-25 22:57 | disposition home or self-care (01) ==
LOC: ED 18:29
DX: R10.13 Epigastric pain (principal); R07.89 Other chest pain; I10 Essential (primary) hypertension; E78.5 Hyperlipidemia, unspecified; E03.9 Hypothyroidism, unspecified
CPT/HCPCS: 71045; 80053; 83690; 84484; 85025; 85378; 85610; 85730; 93005; 96361; 96374; 99284; J1885; J7030

== ENCOUNTER 2018-09-03 17:47 | Observation (INO) | payer OTHER ==
--- NOTE | 2018-09-03 18:09 | ED PDOC ---
Arrival/HPI - General Time Seen by Provider: 09/03/18 18:05 - History of Present Illness Narrative History of Present Illness (Text): 09/03/18 18:06 58 f with hx htn, hld, gerd, presents to the ED with chief complaint of epigastric and left sided chest pain. Patient reports at approx 10am she noticed a sudden epigastric pain which resolved but now has moderate left sided chest pressure. Patient reports she has experienced similar symptoms in the past. Patient reports at the onset of her pain, she felt near syncopal but clearly denies she lost consciousness. Patient denies any dyspnea, no nausea, no headache. Patient was initially seen at [facility] and transferred to the ED for admission under the care of Dr. Parsons. Patient reports a persistent left sided chest pain at this time. Patient refusing analgesic at this time. All data from [facility] reviewed by myself. All PMHx reviewed by myself. 09/03/18 19:03 09/03/18 19:12 Past Medical History - Infectious Disease Hx of Infectious Diseases: None - Tetanus Immunization Tetanus Immunization: Unknown - Cardiac Hx Cardiac Disorders: Yes Hx Hypertension: Yes - Pulmonary Hx Respiratory Disorders: No - Neurological Hx Neurological Disorder: Yes Hx Migraine: Yes Hx Vertigo: Yes - HEENT Hx HEENT Disorder: No - Renal Hx Renal Disorder: No - Endocrine/Metabolic Hx Endocrine Disorders: Yes Hx Hypothyroidism: Yes - Hematological/Oncological Hx Blood Disorders: Yes Hx Anemia: Yes - Integumentary Hx Dermatological Disorder: No - Musculoskeletal/Rheumatological Hx Musculoskeletal Disorders: No - Gastrointestinal Hx Gastrointestinal Disorders: Yes Hx Gastroesophageal Reflux: Yes - Genitourinary/Gynecological Hx Genitourinary Disorders: No - Psychiatric Hx Emotional Abuse: No Hx Physical Abuse: No Hx Substance Use: No - Surgical History Hx Cholecystectomy: Yes - Anesthesia Hx Anesthesia Reactions: No Hx Malignant Hyperthermia: No - Suicidal Assessment Feels Threatened In Home Enviroment: No Family/Social History Family/Social History: No Known Family HX Smoking Status: Never Smoked Hx Alcohol Use: No Hx Substance Use: No Hx Substance Use Treatment: No Allergies/Home Meds Allergies/Adverse Reactions: Allergies No Known Allergies Allergy (Verified 06/25/18 19:25) Home Medications: Home Meds Medication Instructions Recorded Confirmed Butalb/Acetaminophen/Caffeine 1 cap PO Q8 PRN 06/25/18 06/25/18 [Zebutal 325 mg-50 mg-40 mg] Omeprazole 40 mg PO DAILY 06/25/18 06/25/18 RX: Simvastatin [Zocor] 20 mg PO DAILY 06/25/18 06/25/18 RX: amLODIPine [Norvasc] 5 mg PO DAILY 06/25/18 06/25/18 Review of Systems - Physician Review All systems were reviewed & negative as marked: Yes Physical Exam - Systems Exam Head: Present: Atraumatic, Normocephalic Pupils: Present: PERRL Extroacular Muscles: Present: EOMI Neck: Present: Normal Range of Motion. No: JVD Respiratory/Chest: Present: Clear to Auscultation, Good Air Exchange, Other (moderate tenderness in the left chest wall). No: Respiratory Distress, Accessory Muscle Use Cardiovascular: Present: Regular Rate and Rhythm, Normal S1, S2. No: Murmurs Abdomen: Present: Normal Bowel Sounds. No: Tenderness, Distention, Rebound, Guarding Lower Extremity: Present: Normal Inspection. No: Edema Neurological: Present: CN II-XII Intact, Speech Normal, Motor Func Grossly Intact, Normal Sensory Function Skin: Present: Warm, Dry, Normal Color. No: Rashes Psychiatric: Present: Alert, Oriented x 3, Normal Insight, Normal Concentration Medical Decision Making ED Course and Treatment: 09/03/18 18:19 patient seen for chest pain with cardiac risk factors, will get serial ekg and troponin and with the patient's persistent pain will admit observation to rule out acs. 09/03/18 19:[address] hoffman, patient to be admitted for recurrent chest pain, rule out acs, no significant clinical concern for aortic dissection, with negative dimer an acute event such as pe is unlikely. - EKG Interpretation EKG Interpretation (Text): 09/03/18 18:32 1825: nsr at 64 bpm, nml qrs, nml axis, nonspecific t wave abn Interpreted by ED Physician: Yes Disposition/Present on Arrival - Present on Arrival Any Indicators Present on Arrival: No History of DVT/PE: No History of Uncontrolled Diabetes: No Urinary Catheter: No History Surgical Site Infection Following: None - Disposition Have Diagnosis and Disposition been Completed?: Yes Diagnosis: Angina at rest Disposition: HOSPITALIZED Disposition Time: 19:04 Patient Problems: Current Active Problems Problem Status Onset Angina at rest Acute Condition: STABLE Discharge Instructions (ExitCare): Chest Pain (ED) Referrals: Marietta Parsons MD [Primary Care Provider] - Follow up with primary
[2018-09-03 18:48] LABS: BASO # 0.02 K/mm3 (0.0-2.0); BASO % 0.2 % (0.0-3.0); EOS # 0.2 (0.0-0.7); EOS % 1.8 % (1.5-5.0); GRAN # 4.86 (1.4-6.5); GRAN % 57.5 % (50.0-68.0); HEMOGLOBIN 14.1 g/dL (12.0-16.0); MEAN CELL VOLUME 84.2 fl (80.0-105.0); MEAN CORPUSCULAR HEMOGLOBIN 26.8 pg (25.0-35.0); MEAN CORPUSCULAR HGB CONC 31.8 g/dl (31.0-37.0); MEAN PLATELET VOLUME 9.9 fl (7.0-11.0); MONO # 0.5 (0.1-0.6); MONO % 5.5 % (1.0-6.0); RBC 5.26 10^6/uL (3.5-6.1); RED CELL DISTRIBUTION WIDTH 15.9 % (11.5-14.5); WHITE BLOOD COUNT 8.4 10^3/uL (4.5-11.0)
[2018-09-03 18:59] LABS: ALBUMIN 4.3 g/dL (3.0-4.8); BLOOD UREA NITROGEN 12 mg/dL (7-21); CALCIUM 10.1 mg/dL (8.4-10.5); D DIMER < 200 ng/mlDDU (0-243); GFR NON-AFRICAN AMERICAN > 60; INR 1.06; PARTIAL THROMBOPLASTIN TIME 37.6 Seconds (25.1-36.5); PROTHROMBIN TIME 12.1 SECONDS (9.4-12.5)
[2018-09-03 19:00] LABS: ALB/GLOB RATIO 1.1 (1.1-1.8); ALT/SGPT 19 U/L (7-56); AST/SGOT 33 U/L (14-36)
[2018-09-03 19:10] LABS: TROPONIN I < 0.01 ng/mL
[2018-09-03 21:44] VITALS: BMI 38.7
[2018-09-03 23:10] LABS: HDL CHOLESTEROL 50 mg/dL (29-60); IRON 48 ug/dL (45-180)
[2018-09-03 23:22] LABS: % IRON SATURATION 15 % (20-55); TOTAL IRON BINDING CAPACITY 315 ug/dL (265-497)
[2018-09-03 23:23] LABS: LDL CHOLESTEROL 102 mg/dL (0-129)
[2018-09-03 23:25] LABS: TROPONIN I < 0.01 ng/mL
[2018-09-04] MEDS: Apap-Butalbital-Caffeine 325-50-40mg Tab PO PRN ×2 (00:18→21:31)
--- NOTE | 2018-09-04 07:07 | HP ---
DATE OF EXAM: 09/03/2018 Patient was seen and examined at the bedside on 09/03/2018. CHIEF COMPLAINT: Chest pain. HISTORY OF PRESENT ILLNESS: Ms. Ana Paula Cuevas is 58 years old female with past medical history of hypertension, hypercholesterolemia, GERD and dyspepsia, came in with chest pain in the left upper part of the chest, had sometimes epigastric pain. The patient reports at approximately 10:00 a.m. she noted sudden epigastric pain which resolved, but after that she started left-sided chest pressure. The patient reports she has experienced similar symptoms in the past. The patient reports that the onset of her pain was sudden. She has had near syncope, but clearly denies any loss of consciousness, felt dizzy. Denies dyspnea, nausea, vomiting or diarrhea. Initially, the patient was seen by members of outpatient facility and they were planning to keep the patient overnight, sent to [facility], but the patient is working in [facility] and the patient wants to come back to [facility]. We accepted the patient and we admitted the patient, then I saw patient, still she has chest pain, but no shortness of breath. No nausea, vomiting or diarrhea. PAST MEDICAL HISTORY: As above; hypertension, migraine, vertigo, hypothyroidism, GERD, dyspepsia, cholecystectomy. FAMILY HISTORY: Father and mother, noncontributory. HABITS: Never smoked. No drugs. No ethanol. ALLERGIES: THE PATIENT IS NOT ALLERGIC WITH ANY MEDICATION. HOME MEDICATIONS: Fioricet, omeprazole, simvastatin, and amlodipine. REVIEW OF SYSTEMS: The patient was seen and examined at the bedside in her room. Still complaining about chest tightness. No fever, no chills. No headache. No dizziness. PHYSICAL EXAMINATION: VITAL SIGNS: Temperature 98.6, pulse 65, blood pressure 140/79, and respiratory rate 18. HEENT: Head normocephalic, atraumatic. Eyes PERRLA. Extraocular muscles intact. Conjunctivae clear. Nose patent. Mucous membrane moist. NECK: Supple. No carotid bruit, JVD or thyromegaly. CHEST: Bilaterally symmetrical. HEART: S1 and S2 positive. LUNGS: Clear to auscultation. ABDOMEN: Soft. Bowel sounds present. No organomegaly. EXTREMITIES: No edema. No cyanosis. NEUROLOGICAL: The patient is awake and alert, moving all four extremities. No focal deficits. LABORATORY DATA: White blood cells 8.4, hemoglobin 14.1, hematocrit 44.3, platelets 247. Sodium 141, potassium 3.9, BUN 12, creatinine 0.9, glucose 87. Troponin less than 0.01. ASSESSMENT AND PLAN: Ms. Ana Paula Cuevas, a 58 years old lady with history of htn went to [facility] at outpatient facility with chest pain, transferred to [facility], has history of hypertension, migraine, vertigo, hypothyroidism, gastroesophageal reflux disease, dyspepsia, cholecystectomy , We will do 3 sets of cardiac enzymes, restart home medications, cardiology and gi consult called , r/o gerd , dyspepsea , pkept as observation ,repeat labs. We will follow up. Marietta Parsons MD MTDJamie
[2018-09-04 07:11] LABS: HEMOGLOBIN 13.3 g/dL (12.0-16.0); MEAN CELL VOLUME 84.1 fl (80.0-105.0); MEAN CORPUSCULAR HEMOGLOBIN 26.4 pg (25.0-35.0); MEAN CORPUSCULAR HGB CONC 31.4 g/dl (31.0-37.0); MEAN PLATELET VOLUME 9.7 fl (7.0-11.0); RBC 5.04 10^6/uL (3.5-6.1); RED CELL DISTRIBUTION WIDTH 15.9 % (11.5-14.5); WHITE BLOOD COUNT 6.8 10^3/uL (4.5-11.0)
[2018-09-04 07:22] LABS: BLOOD UREA NITROGEN 12 mg/dL (7-21); CALCIUM 9.6 mg/dL (8.4-10.5); GFR NON-AFRICAN AMERICAN > 60
--- NOTE | 2018-09-04 07:35 | CP.PCM.CON ---
History of Present Illness - History of Present Illness History of Present Illness: Awake, alert, complaints of epigastric pain radiating to chest Reason for consultation: Cardiac evaluation of lower mid chest pressure from epigastric pain Brief history of present illness: A 58 year old obese female who came in to the ER due to epigastric pain radiating to lower mid chest. Still complaining of mild lower mid chest pressure.Denies shortness of breath. History of hypertension, hyperlipidemia, GERD, migraine, vertigo,hypothyroidism,anemia, cholecystectomy.She was seen initially at [facility] and per patient request got transferred to [facility]. She works here. Seen and examined by me and Dr. Flores Review of Systems - Review of Systems All systems: reviewed and no additional remarkable complaints except Review of Systems: as per HPI Past Patient History - Infectious Disease Hx of Infectious Diseases: None - Tetanus Immunizations Tetanus Immunization: Unknown - Past Social History Smoking Status: Never Smoked - CARDIAC Hx Hypercholesterolemia: Yes Hx Hypertension: Yes - PULMONARY Hx Respiratory Disorders: No - NEUROLOGICAL Other/Comment: VERTIGO - HEENT Hx HEENT Problems: No - RENAL Hx Chronic Kidney Disease: No - ENDOCRINE/METABOLIC Hx Hyperthyroidism: Yes - HEMATOLOGICAL/ONCOLOGICAL Hx Blood Disorders: Yes Hx Anemia: Yes - INTEGUMENTARY Hx Dermatological Problems: No - MUSCULOSKELETAL/RHEUMATOLOGICAL Hx Falls: No - GASTROINTESTINAL Hx Gastroesophageal Reflux: Yes - GENITOURINARY/GYNECOLOGICAL Hx Genitourinary Disorders: No - PSYCHIATRIC Hx Substance Use: No - SURGICAL HISTORY Hx Cholecystectomy: Yes Hx Hysterectomy: Yes (PARTIAL) - ANESTHESIA Hx Anesthesia Reactions: No Hx Malignant Hyperthermia: No Meds Allergies/Adverse Reactions: Allergies Allergy/AdvReac Type Severity Reaction Status Date / Time No Known Allergies Allergy Verified 06/25/18 19:25 - Medications Medications: Current Medications Acetaminophen/Butalbital/Caffeine (Fioricet) 1 tab PO Q8 PRN PRN Reason: Headache Last Admin: 09/04/18 00:18 Dose: 1 tab Amlodipine Besylate (Norvasc) 5 mg PO DAILY SOFÍA Atorvastatin Calcium (Lipitor) 10 mg PO DIN SOFÍA Meclizine HCl (Antivert) 12.5 mg PO DAILY PRN PRN Reason: dizziness/vertigo Pantoprazole Sodium (Protonix Ec Tab) 40 mg PO ACB SOFÍA Physical Exam - Constitutional Appears: Non-toxic, No Acute Distress - Head Exam Head Exam: NORMAL INSPECTION, NORMOCEPHALIC - Eye Exam Eye Exam: Normal appearance Pupil Exam: NORMAL ACCOMODATION - ENT Exam ENT Exam: Mucous Membranes Moist - Cardiovascular Exam Cardiovascular Exam: REGULAR RHYTHM, +S1, +S2 Additional comments: No JVD Mild mid lower chest pressure/discomfort - GI/Abdominal Exam GI & Abdominal Exam: Normal Bowel Sounds, Soft Additional comments: denies nausea/vomiting - Extremities Exam Extremities exam: Positive for: full ROM, normal capillary refill - Neurological Exam Neurological exam: Alert, Oriented x3 - Skin Skin Exam: Dry, Normal Color, Warm Results - Vital Signs Recent Vital Signs: Last Vital Signs Temp 98.6 F 09/03/18 18:27 Pulse 83 09/04/18 06:00 Resp 18 09/03/18 21:35 BP 141/79 09/03/18 20:46 Pulse Ox 98 09/03/18 20:46 - Labs Result Diagrams: 09/04/18 06:30 09/04/18 06:30 Labs: Laboratory Results - last 24 hr 09/03/18 09/03/18 09/03/18 18:15 18:15 18:15 WBC 8.4 D RBC 5.26 Hgb 14.1 Hct 44.3 MCV 84.2 MCH 26.8 MCHC 31.8 RDW 15.9 H Plt Count 247 MPV 9.9 Gran % 57.5 Lymph % (Auto) 35.0 [place] % (Auto) 5.5 Eos % (Auto) 1.8 Baso % (Auto) 0.2 Gran # 4.86 Lymph # (Auto) 3.0 [place] # (Auto) 0.5 Eos # (Auto) 0.2 Baso # (Auto) 0.02 PT 12.1 INR 1.06 APTT 37.6 H D-Dimer, Quantitative < 200 Sodium 141 Potassium 3.9 Chloride 107 Carbon Dioxide 25 Anion Gap 13 BUN 12 Creatinine 0.9 Est GFR ( Amer) > 60 Est GFR (Non-Af Amer) > 60 Random Glucose 87 Calcium 10.1 Iron TIBC % Saturation Total Bilirubin 0.4 AST 33 ALT 19 Alkaline Phosphatase 111 Lactate Dehydrogenase Total Creatine Kinase Troponin I < 0.01 Total Protein 8.2 Albumin 4.3 Globulin 3.9 Albumin/Globulin Ratio 1.1 Triglycerides Cholesterol LDL Cholesterol Direct HDL Cholesterol 09/03/18 09/03/18 09/04/18 22:55 22:55 06:30 WBC 6.8 RBC 5.04 Hgb 13.3 Hct 42.4 MCV 84.1 MCH 26.4 MCHC 31.4 RDW 15.9 H Plt Count 254 MPV 9.7 Gran % Lymph % (Auto) [place] % (Auto) Eos % (Auto) Baso % (Auto) Gran # Lymph # (Auto) [place] # (Auto) Eos # (Auto) Baso # (Auto) PT INR APTT D-Dimer, Quantitative Sodium Potassium Chloride Carbon Dioxide Anion Gap BUN Creatinine Est GFR ( Amer) Est GFR (Non-Af Amer) Random Glucose Calcium Iron 48 TIBC 315 % Saturation 15 L Total Bilirubin AST ALT Alkaline Phosphatase Lactate Dehydrogenase 346 Total Creatine Kinase 91 Troponin I < 0.01 Total Protein Albumin Globulin Albumin/Globulin Ratio Triglycerides 76 Cholesterol 176 LDL Cholesterol Direct 102 HDL Cholesterol 50 09/04/18 06:30 WBC RBC Hgb Hct MCV MCH MCHC RDW Plt Count MPV Gran % Lymph % (Auto) [place] % (Auto) Eos % (Auto) Baso % (Auto) Gran # Lymph # (Auto) [place] # (Auto) Eos # (Auto) Baso # (Auto) PT INR APTT D-Dimer, Quantitative Sodium 140 Potassium 3.7 Chloride 107 Carbon Dioxide 29 Anion Gap 8 L BUN 12 Creatinine 0.9 Est GFR ( Amer) > 60 Est GFR (Non-Af Amer) > 60 Random Glucose 83 Calcium 9.6 Iron TIBC % Saturation Total Bilirubin AST ALT Alkaline Phosphatase Lactate Dehydrogenase Total Creatine Kinase Troponin I Total Protein Albumin Globulin Albumin/Globulin Ratio Triglycerides Cholesterol LDL Cholesterol Direct HDL Cholesterol Assessment & Plan - Assessment and Plan (Free Text) Assessment: Brief history of present illness: A 58 year old obese female who came in to the ER due to epigastric pain radiating to lower mid chest. Still complaining of mild lower mid chest pressure.Denies shortness of breath. History of hypertension, hyperlipidemia, GERD, migraine, vertigo,hypothyroidism,anemia, cholecystectomy.She was seen initially at [facility] and per patient request got transferred to [facility]. She works here. Troponin x 2 negative (0.01). EKG- normal sinus rhythm. Atypical chest pain, GERD. Had colonoscopy 02/07/18. Review of previous cardiac work up: 01/22/18- Stress test -Normal 01/22/18-Echo done- LV normal size,LVEF 55% Trace aortic regurgitation Mild mitral regurgitation Mild tricuspid regurgitation, RVSP 30 mmHg Mild pulmonic regurgitation No pericardial effusion Plan: Atypical chest pain Troponin normal x 2 Will order 1 more troponin level Consider EGD Heart rate and blood pressure controlled TSH level and HgbA1C On Norvasc 5 mg daily,lipitor 10 mg daily,Protonix 40 mg daily Continue current treatment Continue current medications Weight reduction Lifestyle modification Further recommendations during hospital course Will follow up Plan and treatment discussed with Dr. Flores Thank you Dr. Parsons for the opportunity of taking care of Ms. Faith Brownbridget - Date & Time Date: 09/04/18 Time: 06:40
[2018-09-04] MEDS: Pantoprazole 40 mg EC Tab PO SCH (08:15)
[2018-09-04 08:30] VITALS: RESP 20
--- NOTE | 2018-09-04 09:00 | CP.PCM.CON ---
<EliEder R - Last Filed: 09/04/18 10:55> History of Present Illness - History of Present Illness History of Present Illness: PGY-2 GI consult note for Dr Banegas. Mrs Goss is a 58 year old female with a PMHx of morbid obesity, HTN, HLD, GERD, vertigo, migraine, hypothyroidism, anemia, who presented to the ER for epigastric pain radiating to lower mid chest. Patient reports at approx 10am she noticed a sudden epigastric pain which resolved but now has moderate left sided chest pressure. Patient reports she has experienced similar symptoms in the past. Patient reports at the onset of her pain, she felt near syncopal but clearly denies she lost consciousness. Patient denies any dyspnea, no nausea, no headache. She had a colonoscopy in 02/2018. PMHx: morbid obesity, HTN, HLD, GERD, vertigo, migraine, hypothyroidism, anemia PSHx: cholecystectomy SocialHx: works here at [employer]: no hx of colon cancer Allergies: NKA Review of Systems - Constitutional Constitutional: absent: Chills, Fever - EENT Eyes: absent: Change in Vision - Cardiovascular Cardiovascular: Chest Pain at Rest. absent: Claudication, Dyspnea - Respiratory Respiratory: absent: Cough, Dyspnea - Gastrointestinal Gastrointestinal: Abdominal Pain, Bloating. absent: Change in Bowel Habits, Diarrhea - Genitourinary Genitourinary: absent: Dysuria - Integumentary Integumentary: absent: Bleeding Lesions Past Patient History - Infectious Disease Hx of Infectious Diseases: None - Tetanus Immunizations Tetanus Immunization: Unknown - Past Social History Smoking Status: Never Smoked - CARDIAC Hx Hypercholesterolemia: Yes Hx Hypertension: Yes - PULMONARY Hx Respiratory Disorders: No - NEUROLOGICAL Other/Comment: VERTIGO - HEENT Hx HEENT Problems: No - RENAL Hx Chronic Kidney Disease: No - ENDOCRINE/METABOLIC Hx Hyperthyroidism: Yes - HEMATOLOGICAL/ONCOLOGICAL Hx Blood Disorders: Yes Hx Anemia: Yes - INTEGUMENTARY Hx Dermatological Problems: No - MUSCULOSKELETAL/RHEUMATOLOGICAL Hx Falls: No - GASTROINTESTINAL Hx Gastroesophageal Reflux: Yes - GENITOURINARY/GYNECOLOGICAL Hx Genitourinary Disorders: No - PSYCHIATRIC Hx Substance Use: No - SURGICAL HISTORY Hx Cholecystectomy: Yes Hx Hysterectomy: Yes (PARTIAL) - ANESTHESIA Hx Anesthesia Reactions: No Hx Malignant Hyperthermia: No Meds Allergies/Adverse Reactions: Allergies Allergy/AdvReac Type Severity Reaction Status Date / Time No Known Allergies Allergy Verified 06/25/18 19:25 - Medications Medications: Current Medications Acetaminophen/Butalbital/Caffeine (Fioricet) 1 tab PO Q8 PRN PRN Reason: Headache Last Admin: 09/04/18 00:18 Dose: 1 tab Amlodipine Besylate (Norvasc) 5 mg PO DAILY SOFÍA Atorvastatin Calcium (Lipitor) 10 mg PO DIN SOFÍA Meclizine HCl (Antivert) 12.5 mg PO DAILY PRN PRN Reason: dizziness/vertigo Pantoprazole Sodium (Protonix Ec Tab) 40 mg PO ACB SOFÍA Last Admin: 09/04/18 08:15 Dose: 40 mg Physical Exam - Additional Findings Additional findings: - Constitutional Appears: Non-toxic, No Acute Distress - Head Exam Head Exam: NORMAL INSPECTION, NORMOCEPHALIC - Eye Exam Eye Exam: Normal appearance Pupil Exam: NORMAL ACCOMODATION - ENT Exam ENT Exam: Mucous Membranes Moist - Cardiovascular Exam Cardiovascular Exam: REGULAR RHYTHM, +S1, +S2 Additional comments: No JVD Mild mid lower chest pressure/discomfort - GI/Abdominal Exam GI & Abdominal Exam: Normal Bowel Sounds, Soft, Non-Distended Additional comments: - Extremities Exam Extremities exam: Positive for: full ROM, normal capillary refill - Neurological Exam Neurological exam: Alert, Oriented x3 - Skin Skin Exam: Dry, Normal Color, Warm Results - Vital Signs Recent Vital Signs: Last Vital Signs Temp 97.9 F 09/04/18 08:29 Pulse 60 09/04/18 08:29 Resp 20 09/04/18 08:29 BP 122/76 09/04/18 08:29 Pulse Ox 98 09/04/18 08:29 - Labs Result Diagrams: 09/04/18 06:30 09/04/18 06:30 Labs: Laboratory Results - last 24 hr 09/03/18 09/03/18 09/03/18 18:15 18:15 18:15 WBC 8.4 D RBC 5.26 Hgb 14.1 Hct 44.3 MCV 84.2 MCH 26.8 MCHC 31.8 RDW 15.9 H Plt Count 247 MPV 9.9 Gran % 57.5 Lymph % (Auto) 35.0 [place] % (Auto) 5.5 Eos % (Auto) 1.8 Baso % (Auto) 0.2 Gran # 4.86 Lymph # (Auto) 3.0 [place] # (Auto) 0.5 Eos # (Auto) 0.2 Baso # (Auto) 0.02 PT 12.1 INR 1.06 APTT 37.6 H D-Dimer, Quantitative < 200 Sodium 141 Potassium 3.9 Chloride 107 Carbon Dioxide 25 Anion Gap 13 BUN 12 Creatinine 0.9 Est GFR ( Amer) > 60 Est GFR (Non-Af Amer) > 60 Random Glucose 87 Calcium 10.1 Iron TIBC % Saturation Total Bilirubin 0.4 AST 33 ALT 19 Alkaline Phosphatase 111 Lactate Dehydrogenase Total Creatine Kinase Troponin I < 0.01 Total Protein 8.2 Albumin 4.3 Globulin 3.9 Albumin/Globulin Ratio 1.1 Triglycerides Cholesterol LDL Cholesterol Direct HDL Cholesterol TSH 3rd Generation 09/03/18 09/03/18 09/04/18 22:55 22:55 06:30 WBC 6.8 RBC 5.04 Hgb 13.3 Hct 42.4 MCV 84.1 MCH 26.4 MCHC 31.4 RDW 15.9 H Plt Count 254 MPV 9.7 Gran % Lymph % (Auto) [place] % (Auto) Eos % (Auto) Baso % (Auto) Gran # Lymph # (Auto) [place] # (Auto) Eos # (Auto) Baso # (Auto) PT INR APTT D-Dimer, Quantitative Sodium Potassium Chloride Carbon Dioxide Anion Gap BUN Creatinine Est GFR ( Amer) Est GFR (Non-Af Amer) Random Glucose Calcium Iron 48 TIBC 315 % Saturation 15 L Total Bilirubin AST ALT Alkaline Phosphatase Lactate Dehydrogenase 346 Total Creatine Kinase 91 Troponin I < 0.01 Total Protein Albumin Globulin Albumin/Globulin Ratio Triglycerides 76 Cholesterol 176 LDL Cholesterol Direct 102 HDL Cholesterol 50 TSH 3rd Generation 09/04/18 09/04/18 06:30 06:30 WBC RBC Hgb Hct MCV MCH MCHC RDW Plt Count MPV Gran % Lymph % (Auto) [place] % (Auto) Eos % (Auto) Baso % (Auto) Gran # Lymph # (Auto) [place] # (Auto) Eos # (Auto) Baso # (Auto) PT INR APTT D-Dimer, Quantitative Sodium 140 Potassium 3.7 Chloride 107 Carbon Dioxide 29 Anion Gap 8 L BUN 12 Creatinine 0.9 Est GFR ( Amer) > 60 Est GFR (Non-Af Amer) > 60 Random Glucose 83 Calcium 9.6 Iron TIBC % Saturation Total Bilirubin AST ALT Alkaline Phosphatase Lactate Dehydrogenase Total Creatine Kinase Troponin I Total Protein Albumin Globulin Albumin/Globulin Ratio Triglycerides Cholesterol LDL Cholesterol Direct HDL Cholesterol TSH 3rd Generation 3.34 Assessment & Plan - Assessment and Plan (Free Text) Plan: Mrs Goss is a 58 year old female with a PMHx of morbid obesity, HTN, HLD, GERD, vertigo, migraine, hypothyroidism, anemia, who presented to the ER for epigastric pain radiating to lower mid chest: Epigastric Pain -had a recent CT abd/pelvis w/ and w/o iv contrast which did not show any acute intra-abdominal findings -EGD 2016 pathology was negative for h.pylori, metaplasia or active inflammation -advise weight reduction and to avoid eating before bedtime -continue protonix 40mg po acb -start pepcid 20mg po hs (prefer zantac but zantac not carried in house) -patient was advised to take protonix in the morning and zantac 150mg po in the evening upon discharge -f/u abdominal ultrasound Previous GI procedures: -colonoscopy 02/2018 * single colonic angioectasia, normal mucosa in entire colon, internal hemorrhoids -EGD 02/2017 * normal esophagus, z-line regular, gastritis, single gastric polyp -colonoscopy 02/2017 * one 3mm polyp in ascending colon, normal mucosa in entire colon, internal hemorrhoids Seen and discussed with Dr Banegas <Nick Banegas V - Last Filed: 09/05/18 00:20> Meds - Medications Medications: Current Medications Acetaminophen/Butalbital/Caffeine (Fioricet) 1 tab PO Q8 PRN PRN Reason: Headache Last Admin: 09/04/18 21:31 Dose: 1 tab Amlodipine Besylate (Norvasc) 5 mg PO DAILY SOFÍA Last Admin: 09/04/18 09:33 Dose: 5 mg Atorvastatin Calcium (Lipitor) 10 mg PO DIN SOFÍA Last Admin: 09/04/18 17:42 Dose: 10 mg Meclizine HCl (Antivert) 12.5 mg PO DAILY PRN PRN Reason: dizziness/vertigo Pantoprazole Sodium (Protonix Ec Tab) 40 mg PO ACB SOFÍA Last Admin: 09/04/18 08:15 Dose: 40 mg Results - Vital Signs Recent Vital Signs: Last Vital Signs Temp 98.4 F 09/04/18 18:00 Pulse 65 09/04/18 22:00 Resp 20 09/04/18 18:00 BP 120/79 09/04/18 18:00 Pulse Ox 96 09/04/18 18:00 - Labs Result Diagrams: 09/04/18 06:30 09/04/18 06:30 Labs: Laboratory Results - last 24 hr 09/03/18 09/03/18 09/04/18 22:55 22:55 06:30 WBC 6.8 RBC 5.04 Hgb 13.3 Hct 42.4 MCV 84.1 MCH 26.4 MCHC 31.4 RDW 15.9 H Plt Count 254 MPV 9.7 Sodium Potassium Chloride Carbon Dioxide Anion Gap BUN Creatinine Est GFR ( Amer) Est GFR (Non-Af Amer) Random Glucose Hemoglobin A1c 5.9 Calcium Lactate Dehydrogenase Total Creatine Kinase Troponin I Vitamin B12 457 Folate 9.1 TSH 3rd Generation 09/04/18 09/04/18 09/04/18 06:30 06:30 06:30 WBC RBC Hgb Hct MCV MCH MCHC RDW Plt Count MPV Sodium 140 Potassium 3.7 Chloride 107 Carbon Dioxide 29 Anion Gap 8 L BUN 12 Creatinine 0.9 Est GFR ( Amer) > 60 Est GFR (Non-Af Amer) > 60 Random Glucose 83 Hemoglobin A1c Calcium 9.6 Lactate Dehydrogenase 344 Total Creatine Kinase 75 Troponin I < 0.01 Vitamin B12 Folate TSH 3rd Generation 3.34 Attending/Attestation - Attestation I have personally seen and examined this patient.: Yes I have fully participated in the care of the patient.: Yes I have reviewed all pertinent clinical information: Yes Notes (Text): This is an addendum to GI consult report dictated by the Ribbon Cleaner.The patient was seen and evaluated earlier. Medical records, lab studies, imagings were reviewed. Last 24 hours events reviewed. Agreed with the above treatment plan as outlined in Ribbon Cleaner 's notes with the addition of the following This patient is admitted with atypical chest pain history of chronic acid reflux Status post cholecystectomy Previous EGD colonoscopy report was reviewed Continue High dose PPI ?consider EGD if remains symptomatic in spite of high dose PPI after cardiac eval 09/05/18 00:20
[2018-09-04 11:44] LABS: TROPONIN I < 0.01 ng/mL
[2018-09-04] MEDS: Sodium Chloride 0.9% 1,000 ML IV SCH (13:37)
[2018-09-04 13:55] LABS: FOLATE 9.1 ng/mL
--- NOTE | 2018-09-04 15:35 | PN ---
DATE: 09/04/2018 REASON FOR CONSULTATION AND FOLLOWUP: Chest pain, cardiac evaluation, dizziness. 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 Left side of the chest is tender, so a cardiac consult was called. Patient denied any chest pain, so far troponin is negative. Patient had a normal stress test dated 01/22/2018. Patient had a normal echo 01/22/2018. Mild mitral regurgitation, mild tricuspid regurgitation. culture has been so far troponin negative. PLAN: We will add one more set of the troponin. If the troponin is negative, we will DC telemetry. Patient is okay to be discharge as the troponin remains negative. Further management as per Dr. Sierra. Thank you Dr. Parsons for providing us the opportunity in taking care of the patient, Faith Goss. Gerard Flores MD
--- NOTE | 2018-09-04 16:15 | CARD ---
APPROVED REPORT Date of service: 09/03/2018 EKG Measurement Heart [id number] <Conclusion> Normal sinus rhythm Normal Electrocardiogram
--- NOTE | 2018-09-04 16:45 | US ---
Date of service: 09/04/2018 HISTORY: epigastric pain COMPARISON: None. TECHNIQUE: Sonographic evaluation of the abdomen. FINDINGS: LIVER: Measures 13.16 x 10.95 cm. Normal echogenicity of the liver parenchyma. No mass. No intrahepatic bile duct dilatation. GALLBLADDER: Removed COMMON BILE DUCT: Measures 6 mm. No stones. No dilatation. PANCREAS: Unremarkable as visualized. No mass. No ductal dilatation. RIGHT KIDNEY: Measures 10.11 x 4.05 x 5.07cm. Normal echogenicity. No calculus, mass, or hydronephrosis. LEFT KIDNEY: Measures 9.53 x 5.33 x 5.18cm. Normal echogenicity. No calculus, mass, or hydronephrosis. SPLEEN: Normal in size and contour. No mass. 8.45 x 3.51 AORTA: No aneurysmal dilatation. IVC: Unremarkable. OTHER FINDINGS: None. IMPRESSION: No acute findings
--- NOTE | 2018-09-05 00:27 | PN ---
DATE: 09/04/2018 The patient is 58 years old female. SUBJECTIVE: The patient was seen and examined on the bedside on 09/04/2018, looking comfortable. No nausea, vomiting, diarrhea. No hematuria or hematochezia. No swelling of the legs. No chest pain. No palpitation. No headache. No dizziness. The chest pain is little bit better. PHYSICAL EXAMINATION VITAL SIGNS: Temperature 98.4, pulse 79, blood pressure 120/79, respiratory rate 20. HEENT: Head normocephalic, atraumatic. Eyes PERRLA. Extraocular muscles intact. Conjunctivae clear. Nose patent. Mucous membrane moist. NECK: Supple. No carotid bruit, JVD or thyromegaly. CHEST: Bilaterally symmetrical. HEART: S1 and S2 positive. LUNGS: Clear to auscultation. ABDOMEN: Soft. Bowel sounds present. No organomegaly. EXTREMITIES: No edema. No cyanosis. NEUROLOGIC: The patient is awake and alert. Moving all 4 extremities. No focal deficits. MEDICATIONS: Antivert, Fioricet, Lipitor, Norvasc, Protonix, LABORATORY DATA: White blood cells 6.8, hemoglobin 13.2, hematocrit 42.4, platelets 254. Sodium 140, potassium 3.7, BUN 12, creatinine 0.9, glucose 83, iron saturation 15%. ASSESSMENT AND PLAN: Ms. Ana Paula Cuevas is 58 years old lady with history of .hypertension, hypercholesterolemia. 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 So far, troponin is negative. She had normal stress test done on 01/22/2018. Normal echocardiogram, mild mitral regurgitation, mild tricuspid regurgitation. Dr. Flores added one more set of troponin, if the troponin is negative we will discontinue telemetry. The patient is okay to discharge if troponin remains negative. We would consult with Dr. Banegas, senior cytogenetics laboratory director. Went to abdominal ultrasound, reviewed by me. The patient has morbid obesity, hypertension, gastroesophageal reflux disease, vertigo, migraine, hypothyroidism, anemia. Had recent CT of abdomen and pelvis with p.o. and IV contrast, which did not show any acute intraabdominal findings. In 2017, the EGD was done, negative for H. pylori, metaplasia or active inflammation, was advised to reduce weight, continue Protonix. Patient was advised to take Protonix in the morning and Zantac 150 p.o. in the evening upon discharge as per GI. We will consult with the neurologist also for the patient having dizziness and migraine. Actually, at the time of admission, she was telling that she has a feeling of passing out. Repeats labs and follow up. Marietta Parsons MD MTDD
[2018-09-05] MEDS: Pantoprazole 40 mg EC Tab PO SCH (06:36)
[2018-09-05 08:18] VITALS: TEMP 97.8; O2SAT 99
[2018-09-05] MEDS ORDERED: Sodium Chloride 0.9% 1,000 ML IV SCH (09:45)
[2018-09-05] MEDS: Sodium Chloride 0.9% 1,000 ML IV SCH (09:50)
[2018-09-05 09:51] VITALS: BP 113/74
--- NOTE | 2018-09-05 10:56 | CP.PCM.PN ---
<Eder Benitez - Last Filed: 09/05/18 10:48> Subjective - Date & Time of Evaluation Date of Evaluation: 09/05/18 Time of Evaluation: 10:48 - Subjective Subjective: PGY-2 GI progress note for Dr Banegas. No acute events overnight. Patient denied abdominal pain or heartburn. Denied chest pain. Denied diarrhea or emesis or nausea. She was resting comfortably this morning. Objective - Vital Signs/Intake and Output Vital Signs (last 24 hours): Temp Pulse Resp BP Pulse Ox 97.8 F 74 20 113/74 99 09/05/18 08:18 09/05/18 09:50 09/05/18 08:18 09/05/18 09:50 09/05/18 08:18 Intake and Output: 09/05/18 09/05/18 06:59 18:59 Intake Total 2820 Balance 2820 - Medications Medications: Current Medications Acetaminophen/Butalbital/Caffeine (Fioricet) 1 tab PO Q8 PRN PRN Reason: Headache Last Admin: 09/04/18 21:31 Dose: 1 tab Amlodipine Besylate (Norvasc) 5 mg PO DAILY [facility] Last Admin: 09/05/18 09:50 Dose: 5 mg Atorvastatin Calcium (Lipitor) 10 mg PO DIN [facility] Last Admin: 09/04/18 17:42 Dose: 10 mg Sodium Chloride (Sodium Chloride 0.9%) 1,000 mls @ 100 mls/hr IV .Q10H SOFÍA Stop: 09/05/18 19:00 Meclizine HCl (Antivert) 12.5 mg PO DAILY PRN PRN Reason: dizziness/vertigo Last Admin: 09/05/18 09:55 Dose: 12.5 mg Pantoprazole Sodium (Protonix Ec Tab) 40 mg PO ACB SOFÍA Last Admin: 09/05/18 06:36 Dose: 40 mg - Labs Labs: 09/04/18 06:30 09/04/18 06:30 PT 12.1 SECONDS (9.4-12.5) 09/03/18 18:15 INR 1.06 09/03/18 18:15 APTT 37.6 Seconds (25.1-36.5) H 09/03/18 18:15 - Additional Findings Additional findings: - Constitutional Appears: Non-toxic, No Acute Distress - Head Exam Head Exam: NORMAL INSPECTION, NORMOCEPHALIC - Eye Exam Eye Exam: Normal appearance Pupil Exam: NORMAL ACCOMODATION - ENT Exam ENT Exam: Mucous Membranes Moist - Cardiovascular Exam Cardiovascular Exam: REGULAR RHYTHM, +S1, +S2 Additional comments: No JVD - GI/Abdominal Exam GI & Abdominal Exam: Normal Bowel Sounds, Soft, Non-Distended, Non-tender Additional comments: - Extremities Exam Extremities exam: Positive for: full ROM, normal capillary refill - Neurological Exam Neurological exam: Alert, Oriented x3 - Skin Skin Exam: Dry, Normal Color, Warm Assessment and Plan - Assessment and Plan (Free Text) Plan: Mrs Goss is a 58 year old female with a PMHx of morbid obesity, HTN, HLD, GERD, vertigo, migraine, hypothyroidism, anemia, who presented to the ER for epigastric pain radiating to lower mid chest: Epigastric Pain -had a recent CT abd/pelvis w/ and w/o iv contrast which did not show any acute intra-abdominal findings -EGD 2016 pathology was negative for h.pylori, metaplasia or active inflammation -advise weight reduction and to avoid eating before bedtime -continue protonix 40mg po acb -patient was advised to take protonix in the morning and zantac 150mg po in the evening upon discharge -abdominal ultrasound * no acute findings -?consider EGD if remains symptomatic in spite of high dose PPI after cardiac eval Previous GI procedures: -colonoscopy 02/2018 * single colonic angioectasia, normal mucosa in entire colon, internal hemorrhoids -EGD 02/2017 * normal esophagus, z-line regular, gastritis, single gastric polyp -colonoscopy 02/2017 * one 3mm polyp in ascending colon, normal mucosa in entire colon, internal hemorrhoids Seen and discussed with Dr Banegas <Nick Banegas V - Last Filed: 09/06/18 01:24> Objective - Vital Signs/Intake and Output Vital Signs (last 24 hours): Temp Pulse Resp BP Pulse Ox 97.8 F 73 20 113/74 99 09/05/18 08:18 09/05/18 10:00 09/05/18 08:18 09/05/18 09:50 09/05/18 08:18 - Labs Labs: 09/05/18 15:30 09/04/18 06:30 PT 12.1 SECONDS (9.4-12.5) 09/03/18 18:15 INR 1.06 09/03/18 18:15 APTT 37.6 Seconds (25.1-36.5) H 09/03/18 18:15 Attending/Attestation - Attestation I have personally seen and examined this patient.: Yes I have fully participated in the care of the patient.: Yes I have reviewed all pertinent clinical information, including history, physical exam and plan: Yes
[2018-09-05 11:29] VITALS: PULSE 73
--- NOTE | 2018-09-05 14:41 | PN ---
DATE: 09/05/2018 REASON FOR CONSULTATION: Chest pain, cardiac evaluation, dizziness, mild orthostatic hypotension. Patient denies any chest pain, shortness of breath, or any palpitations. History of vertigo. On standing, may feel a little bit dizzy. SUBJECTIVE: Not in apparent distress. Lying flat in the bed. OBJECTIVE: VITAL SIGNS: Temperature afebrile, heart rate 58, blood pressure 139/89. On checking orthostatic blood pressure as follows: Lying down 132/92, on sitting blood pressure 144/99, standing 113/85. HEENT: PERRLA. Extraocular muscles intact. NECK: No carotid bruits or thyromegaly. CHEST: Clear to auscultation. HEART: S1, S2, regular. ABDOMEN: Soft. EXTREMITIES: Clubbing, cyanosis negative. LABORATORY DATA: Blood workup as follows: WBC 6.8, hemoglobin 13.2, hematocrit 42.4, platelet count 254. Chemistry shows sodium 140, potassium 3.7, chloride 107, carbon dioxide 29, anion gap of 8, BUN 12, creatinine 0.9 as of yesterday. Troponin x3 negative. IMPRESSION: A 58-year-old female with past medical history significant for hypertension, hyperlipidemia, admitted yesterday after having episodes of dizziness, mild and funny sensation. So far, no evidence of acute myocardial infarction. Recently noninvasive cardiac workup is negative. Stress test date 01/22/2018 is negative. Echocardiogram essentially 01/22/2018 reveals preserved left ventricular function, mild mitral regurgitation, mild tricuspid regurgitation. Yesterday, the patient was having orthostatic hypotension, so IV fluid was started. This morning again, mild orthostatic hypotension. We will continue 1 liter of the fluid. We will discontinue telemetry. Further recommendation as per Dr. Parsons. Thank you, Dr. Parsons, for providing us the opportunity in taking care of patient, Faith Goss. Gerard Flores MD
[2018-09-05 15:37] LABS: HEMOGLOBIN 12.8 g/dL (12.0-16.0); MEAN CELL VOLUME 83.3 fl (80.0-105.0); MEAN CORPUSCULAR HEMOGLOBIN 26.8 pg (25.0-35.0); MEAN CORPUSCULAR HGB CONC 32.2 g/dl (31.0-37.0); MEAN PLATELET VOLUME 9.8 fl (7.0-11.0); RBC 4.78 10^6/uL (3.5-6.1); RED CELL DISTRIBUTION WIDTH 15.6 % (11.5-14.5); WHITE BLOOD COUNT 7.5 10^3/uL (4.5-11.0)
--- NOTE | 2018-09-05 23:37 | CON ---
DATE: 09/05/2018 HISTORY OF PRESENT ILLNESS: She is a 58-year-old black female with a past medical history of headache and has been seeing Dr. Rakesh Suarez in the office and came here with stomach epigastric pain and left-sided chest pain, seen by Dr. Flores and her troponin was negative, and her echo recently done was also normal. Her CAT scan of the head was done in facility was normal, done on 09/03/2018 and patient is feeling more of a stomach issue now, called to evaluate the patient. Patient is lying comfortably. No headache. No dizziness. PAST MEDICAL HISTORY: As above. SOCIAL HISTORY: Does not smoke, does not drink. ALLERGIES: NO KNOWN DRUG ALLERGIES. PHYSICAL EXAMINATION HEENT: Normocephalic and atraumatic. Pupils reactive. EOM Intact. Visual [place] full. No facial asymmetry. Tongue midline. NECK: Supple. NEUROLOGIC: Awake, oriented to self and place. Cranial nerves II to XII are tested. MOTOR EXAMINATION: Moves all the extremities equally. Tone normal. Deep tendon reflexes 1+. Both plantars downgoing. Sensory appears intact. Cerebellar gait was normal. IMPRESSION: Chest pain and epigastric pain. PLAN: Workup is in progress and I agree with Dr. Flores and the patient will be seen by Dr. Banegas and will clear. From my view point, she is doing okay and we will follow her up in the office. Jimmie Suarez MD
== END 2018-09-05 17:51 | disposition home or self-care (01) ==
LOC: ED 17:47 → ERH 19:06 → 3RSO 20:57
PROVIDERS: ADMIT Internal Medicine; ATTEND Internal Medicine
DX: R07.89 Other chest pain (principal); I10 Essential (primary) hypertension; G43.909 Migraine, unspecified, not intractable, without status migrainosus; E03.9 Hypothyroidism, unspecified; K21.9 Gastro-esophageal reflux disease without esophagitis; D64.9 Anemia, unspecified; E66.01 Morbid (severe) obesity due to excess calories; E78.00 Pure hypercholesterolemia, unspecified; E78.5 Hyperlipidemia, unspecified; I20.9 Angina pectoris, unspecified; I95.1 Orthostatic hypotension; Z90.49 Acquired absence of other specified parts of digestive tract; Z90.710 Acquired absence of both cervix and uterus; K64.8 Other hemorrhoids; K29.70 Gastritis, unspecified, without bleeding; I08.8 Other rheumatic multiple valve diseases
CPT/HCPCS: 36415; 76700; 80048; 80053; 80061; 82550; 82607; 82746; 83036; 83540; 83550; 83615; 84443; 84484; 85025; 85027; 85378; 85610; 85730; 93005; 97161; 99285; G0378; G8978; G8979; G8980; J7030

== ENCOUNTER 2018-11-16 09:13 | Day surgery (SDC) | payer OTHER ==
[2018-11-16 10:12] VITALS: TEMP 97.9
[2018-11-16 10:21] LABS: BASO # 0.03 K/mm3 (0.0-2.0); BASO % 0.5 % (0.0-3.0); EOS # 0.2 (0.0-0.7); EOS % 3.3 % (1.5-5.0); GRAN # 3.62 (1.4-6.5); GRAN % 57.4 % (50.0-68.0); HEMOGLOBIN 13.4 g/dL (12.0-16.0); LYMPH # 2.1 (1.2-3.4); LYMPH % 32.8 % (22.0-35.0); MEAN CELL VOLUME 82.5 fl (80.0-105.0); MEAN CORPUSCULAR HEMOGLOBIN 26.9 pg (25.0-35.0); MEAN CORPUSCULAR HGB CONC 32.6 g/dl (31.0-37.0); MEAN PLATELET VOLUME 9.8 fl (7.0-11.0); MONO # 0.4 (0.1-0.6); RBC 4.98 10^6/uL (3.5-6.1); RED CELL DISTRIBUTION WIDTH 15.3 % (11.5-14.5); WHITE BLOOD COUNT 6.3 10^3/uL (4.5-11.0)
[2018-11-16] MEDS ORDERED: Sodium Chloride 0.9% 1,000 ML IV SCH (10:30)
[2018-11-16 10:31] LABS: ALB/GLOB RATIO 1.1 (1.1-1.8); ALBUMIN 4.4 g/dL (3.0-4.8); ALT/SGPT 20 U/L (7-56); AMYLASE 92 U/L (35-125); AST/SGOT 30 U/L (14-36); BLOOD UREA NITROGEN 12 mg/dL (7-21); CALCIUM 10.3 mg/dL (8.4-10.5); GAMMA GLUTAMYL TRANSPEPTIDASE 28 U/L (8-78); GFR NON-AFRICAN AMERICAN > 60; LIPASE 35 U/L (23-300)
[2018-11-16] MEDS ORDERED: Propofol 10 mg/ml Inj (20 ML) ONE ×2 (12:13→12:37)
[2018-11-16] MEDS ORDERED: Midazolam 2 MG/2 ML VIAL ONE (12:38)
[2018-11-16 12:42] LABS: INR 1.12; PARTIAL THROMBOPLASTIN TIME 38.4 Seconds (25.1-36.5); PROTHROMBIN TIME 12.9 SECONDS (9.4-12.5)
[2018-11-16 13:32] VITALS: RESP 16
[2018-11-16 14:43] VITALS: BP 114/79; PULSE 65; O2SAT 100
== END 2018-11-16 15:02 | disposition home or self-care (01) ==
LOC: ENDO 09:13
PROVIDERS: ATTEND Internal Medicine Gastroenterology
DX: K21.9 Gastro-esophageal reflux disease without esophagitis (principal); K29.50 Unspecified chronic gastritis without bleeding; R10.13 Epigastric pain
CPT/HCPCS: 36415; 43239; 43259; 80053; 82150; 82977; 83690; 85025; 85610; 85730; 88305; 88342; J2001; J2250; J2704; J3010; J7030; J7040

== ENCOUNTER 2018-12-15 11:38 | Outpatient (CLI) | payer OTHER | END 2018-12-15 11:39 | disposition home or self-care (01) | LOC: RAD 11:38 ==

== ENCOUNTER 2019-01-12 08:37 | Outpatient (CLI) | payer OTHER | END 2019-01-12 08:38 | disposition home or self-care (01) | LOC: RAD 08:37 ==

== ENCOUNTER 2019-02-09 09:05 | Outpatient (CLI) | payer OTHER | END 2019-02-09 09:06 | disposition home or self-care (01) | LOC: RAD 09:05 | DX: R10.2 Pelvic and perineal pain (principal); Z80.41 Family history of malignant neoplasm of ovary ==

== ENCOUNTER 2019-03-09 07:55 | Outpatient (CLI) | payer OTHER | END 2019-03-09 07:56 | disposition home or self-care (01) | LOC: LAB 07:55 ==

== ENCOUNTER 2019-03-23 13:38 | Outpatient (CLI) | payer OTHER | END 2019-03-23 13:39 | disposition home or self-care (01) | LOC: RAD 13:38 ==